=== PATIENT | female | born 1955 | race Caucasian/White ===

== ENCOUNTER 2019-03-05 02:09 | Inpatient (IN) ==
[2019-03-05] MEDS ORDERED: ZOFRAN IV ONE (02:31)
[2019-03-05] MEDS ORDERED: TORADOL IV ONE (02:31)
[2019-03-05] MEDS ORDERED: PEPCID IV ONE (02:31)
[2019-03-05] MEDS ORDERED: SODIUM CHLORIDE 0.9% INJ ONE (02:31)
[2019-03-05] MEDS ORDERED: MORPHINE IV ONE (03:42)
--- NOTE | 2019-03-05 03:42 | PROVIDER DOCUMENTATION ---
HPI-Abdominal Pain/GI Problem - General Chief Complaint: Abdominal Pain Stated Complaint: abd pain Time Seen by Provider: 03/05/19 02:22 Source: patient Allergies/Adverse Reactions: Patient Allergies Allergy/AdvReac Type Severity Reaction Status Date / Time Penicillins Allergy Unknown Verified 03/05/19 03:15 Home Medications: Home Medication List Medication Instructions Recorded Confirmed Last Taken Type Amlodipine [Norvasc] 10 mg PO DAILY 08/26/15 03/05/19 09/21/15 History Metoprolol Succinate E.r. [Toprol 50 mg PO DAILY 08/26/15 03/05/19 09/21/15 Hi story Xl] Tiotropium [place] [Spiriva 2 puff IH DAILY 08/26/15 03/05/19 09/21/15 History Respimat] Albuterol 2.5MG/Ipratrop 0.5MG 3 ml INH Q4-6H PRN PRN #100 neb 09/01/15 03/05/19 Unknown Rx [Duoneb] Ibuprofen [Motrin] 800 mg PO Q8H PRN PRN #20 tablet 09/21/15 03/05/19 Unknown Rx Roflumilast [Daliresp] 500 microgm PO DAILY 09/21/15 03/05/19 09/21/15 History Calcitonin,[place],Synthetic 1 spray INH DAILY 03/05/19 03/05/19 Unknown History [Calcitonin-[place]] Hydrocodone/Acetaminophen [[place] 1 tab PO TID PRN 03/05/19 03/05/19 Unknown History 7.5-325 Tablet] Meloxicam [Mobic] 1 tab PO DAILY 03/05/19 03/05/19 Unknown History Methocarbamol 1 tab PO TID 03/05/19 03/05/19 Unknown History Naloxegol Oxalate [Movantik] 1 tab PO DAILY 03/05/19 03/05/19 Unknown History Oxycodone HCl/Acetaminophen 1 tab PO TID PRN 03/05/19 03/05/19 Unknown History [Oxycodone-Acetaminophen 10-325] Pregabalin [Lyrica] 1 cap PO TID 03/05/19 03/05/19 Unknown History - History of Present Illness-ABD Nature of Presenting Problems: Presents to the with complaints of RUQ abdominal pain. She states that it started last night around 9pm after she ate dinner. She states that she had ribs, baked beans and steak fries. She states that she woke up acutely at 0130 and was drenched in sweat and the pain got worse. SHe endorses some nausea at this time but denies any vomiting. SHe denies any chest pain or SOB. She did not try anything at home. She denies any fevers, diarrhea or constipation. It is worse in her RUQ but feels like it radiates all over her abdomen. She denies any dysuria or heamturia. She states this has never happened to her. SHe denies any chest pain or cardiac history. Abdominal Pain Onset Location: reports: RUQ, generalized abdomen Review of Systems - Adult - REVIEW OF SYSTEMS - ADULT Constitutional: denies: chills, fever Eyes: reports: no symptoms reported Ears, Nose, Mouth & Throat: reports: no symptoms reported Cardiovascular: reports: no symptoms reported Respiratory: reports: no symptoms reported Gastrointestinal: reports: abdominal pain, nausea. denies: constipation, diarrhea, rectal bleeding, vomiting Genitourinary: denies: dysuria, hematuria Musculoskeletal: reports: no symptoms reported Integumentary: reports: no symptoms reported Neurological: reports: no symptoms reported Psychiatric: reports: no symptoms reported Endocrine: reports: no symptoms reported Hematologic/Lymphatic: reports: no symptoms reported Allergic/Immunologic: reports: no symptoms reported All Other Systems: Reviewed and Negative Past History - Adult - PAST MEDICAL HISTORY-ADULT Review of Records: reports: Old Records Reviewed, Nursing Assessment Review, Medications Reviewed, Social history reviewed & non-contributory. Major Childhood Illnesses: reports: denies history Cardiovascular: reports: HTN Respiratory: reports: COPD Gastrointestinal: reports: denies history Obstetrical/Gynecological: reports: denies history Genitourinary: reports: denies history Musculoskeletal: reports: orthopedic injury Neurological: reports: denies history Endocrine/Immune: reports: denies history Other Conditions: reports: cataract/glaucoma - PRIOR SURGERIES/PROCEDURES Surgical/Procedure History: reports: tonsillectomy, orthopedic (extremity), other (cataract) - IMMUNIZATION STATUS Childhood Immunizations: See Nurse Assessment Flu Vaccine: See Nurse Assessment - FAMILY HISTORY Family History: reviewed, not pertinent Physical Exam-General - PHYSICAL EXAM-ADULT Initial Vital Signs Reviewed: Yes - CONSTITUTIONAL General Appearance: appears well, alert, mild distress (uncomfortable appearing) - EYES Eyes: PERRL/EOMI - HEAD, EARS, NOSE, MOUTH & THROAT HENMT: normocephalic/atraumatic - NECK Neck: non-tender, full range of motion, supple - RESPIRATORY Respiratory: chest non-tender, lungs clear, normal breath sounds - CARDIOVASCULAR Cardiovascular: normal peripheral pulses, regular rate, rhythm - GASTROINTESTINAL (ABDOMEN) Abdominal Exam: normal bowel sounds, guarding, rigid, tenderness (worse in RUQ but is present diffusely) - MUSCULOSKELETAL Back Exam: normal inspection Extremity: normal range of motion, non-tender, normal gait - SKIN Integumentary: normal color, warm/dry - NEUROLOGIC Neurologic: grossly normal - PSYCHIATRIC Psych/Mental Status: normal mood/affect, oriented x 3 Progress - PLAN OF CARE/RESULTS Progress/Plan/Lab Results: Vital Signs - 8 hr 03/05/19 02:15 03/05/19 03:06 Temperature 97.1 F L 97.0 F L Pulse Rate 75 99 H Respiratory Rate 24 20 Blood Pressure 142/74 142/69 O2 Sat by Pulse Oximetry 100 98 Orders Category Date Time Status Saline Loc NOW Care 03/05/19 02:[address] ABD/PELVIS W/IV CONT ONLY [CT] Stat Exams 03/05/19 02:33 Ordered AMYLASE [CHEM] Stat Lab 03/05/19 02:56 Ordered CBC WITH ELECTRONIC DIFF [HEME] Stat Lab 03/05/19 02:56 Ordered COMPREHENSIVE METABOLIC PANEL [CHEM] Stat Lab 03/05/19 02:56 Ordered LIPASE [CHEM] Stat Lab 03/05/19 02:56 Ordered TROPONIN T Stat Lab 03/05/19 03:09 Ordered URINALYSIS [URINALYSIS] Stat Lab 03/05/19 02:31 Uncollected URINE DRUG SCREEN Stat Lab 03/05/19 02:31 Uncollected Famotidine [Pepcid] Med 03/05/19 02:31 Discontinued 20 mg IV NOW ONE Ketorolac [Toradol] Med 03/05/19 02:31 Discontinued 30 mg IV NOW ONE Ondansetron [Zofran] Med 03/05/19 02:31 Discontinued 4 mg IV NOW ONE Sodium Chloride 0.9% Med 03/05/19 02:31 Discontinued 5 - 10 ml INJ NOW ONE EKG [EKG] Stat Ther 03/05/19 02:44 Ordered Result Diagrams: 03/05/19 03:00 03/05/19 03:00 - CT/MRI 1 CT Study: Abdomen Impression: Abnormal (Bowel perforation) - CONSULTS/PCP/HOSPITALIST Notification #1 *Consult/PCP/Hospitalist*: Dr Horvath Time Discussed: 05:35 Reason/Comments: Admit to hospitalist Consult Disposition: Will see in ED #2 Consult: Dr Wright Time Discussed: 05:45 Consult Disposition: Admit Departure - Departure Date of Disposition Decision: 03/05/19 Time of Disposition Decision: 05:53 DIAGNOSIS: Bowel perforation Disposition: ADMITTED INPATIENT 09 Certified Medical Emergency: Emergent Condition: Stable Additional Freetext Instructions: ED Follow Up Instructions: You have been treated by a care provider in the Emergency Department. These instructions are being provided to you so you can have an understanding of how to care for yourself upon discharge. Upon discharge from the Emergency Department, you are responsible for making arrangements for follow-up care by a physician of your choice. Take all prescribed medications as directed. Return to the Emergency Department immediately for any new or worsening symptoms. You may call the Physician Referral phone number at [phone] to obtain a list of Physicians who are taking new patients. Referrals and Follow-Ups: Malorie Martinez MD [Primary Care Provider] - Discharge Education: Steps to Quit Smoking, [id number] - Critical Care Note This patient required my direct & personal management of CC.: No Attestation - Physician/ MADDY Attestation Patient care was provided by Advanced Practice Provider:: No The physician spent face to face time with patient:: Yes Advanced Practice Provider documentation review:: Supervising physician onsite and consulted in the evaluation and care of this patient. The physician did have a face to face encounter with the patient.
[2019-03-05 04:26] LABS: AGAP 14; ALB/GLOB RATIO 2.1; ALKALINE PHOSPHATASE 41 U/L (32-104); AMYLASE 68 U/L (20-200); BUN 26 mg/dL (8-22); CALCIUM 8.7 mg/dL (8.8-10.2); CHLORIDE 92 mmol/L (98-107); COSMO 271; CREATININE 0.8 mg/dL (0.5-0.9); ESTIMATED GFR > 60; GLUCOSE 125 mg/dL (70-104); GOT 16 U/L (10-30); GPT 13 U/L (10-36); LIPASE 41 U/L (13-60); POTASSIUM 4.2 mmol/L (3.5-5.1); SODIUM 132 mmol/L (136-145); TCO2 26 mmol/L (25-35); TOTAL BILIRUBIN 0.52 mg/dL (0.20-1.00); TOTAL PROTEIN 5.9 g/dL (6.3-8.3)
[2019-03-05 04:27] LABS: BASO# 0.02 X1000 (0.0-0.2); BASO% 0.1 % (0.0-0.8); HEMOGLOBIN 11.9 g/dL (12.0-16.0); IMM GRAN# 0.09 X1000 (0.0-0.04); IMM GRAN% 0.3 % (0.0-0.5); LYMPH# 1.47 X1000 (1.2-3.4); LYMPH% 5.4 % (20.5-51.1); MCH 33.3 PG (27-31); MCHC 36.1 g/dL (33-37); MCV 92.4 FL (81-99); MONO% 6.6 % (1.7-9.3); MPV 9.2 FL (7.4-10.4); NEUT# 23.82 X1000 (1.4-6.5); NEUT% 87.6 % (42.2-75.2); PLT 238 X1000 (130-400); RBC 3.57 XMIL (4.2-5.4); RDW 15.6 % (11.5-14.5)
[2019-03-05 05:44] LABS: URINE SOURCE CATH
[2019-03-05] MEDS ORDERED: FLAGYL 500 MG/NS 500 MG/100 ML IVPB IV ONE (05:46)
[2019-03-05] MEDS ORDERED: LEVAQUIN 750 MG/D5W 750 MG/150 ML IVPB IV ONE (05:46)
[2019-03-05 05:49] LABS: BILIRUBIN URINE NEGATIVE (NEGATIVE); BLOOD URINE NEGATIVE (NEGATIVE); COLOR YELLOW; GLUCOSE URINE NEGATIVE (NEGATIVE); KETONE URINE TRACE mg/dL (NEGATIVE); LEUKOCYTES URINE NEGATIVE (NEGATIVE); NITRITE URINE NEGATIVE (NEGATIVE); PROTEIN URINE NEGATIVE (NEGATIVE); SP GRAVITY URINE 1.009; TURBIDITY URINE CLEAR (CLEAR); UROBILINOGEN URINE NORMAL (NORMAL)
[2019-03-05 05:50] LABS: UR EPITHELIAL CELLS <10 /HPF (<10); URINE BACTERIA NEGATIVE /HPF; URINE RBC <10 /HPF (<10); URINE WBC <10 /HPF (<10)
[2019-03-05 06:05] LABS: UR AMPHETAMINES QUAL NONE DETECTED (NONE DETECT); UR BARBITUATES QUAL NONE DETECTED (NONE DETECT); UR BENZODIAZEPIN QUAL NONE DETECTED (NONE DETECT); UR CANNABINOIDS QUAL NONE DETECTED (NONE DETECT); UR COCAINE QUAL NONE DETECTED (NONE DETECT); UR METHADONE QUAL NONE DETECTED (NONE DETECT); UR OPIATES QUAL PRESUMPTIVE POSITIVE (NONE DETECT); UR OXYCODONE QUAL PRESUMPTIVE POSITIVE (NONE DETECT); UR PCP QUAL NONE DETECTED (NONE DETECT)
[2019-03-05] MEDS ORDERED: DIPRIVAN 1% ONE (06:41)
[2019-03-05] MEDS ORDERED: QUELICIN (DOSE) ONE (06:41)
[2019-03-05] MEDS ORDERED: XYLOCAINE-MPF 2% ONE (06:43)
--- NOTE | 2019-03-05 06:59 | HISTORY AND PHYSICAL ---
PRIMARY CARE PHYSICIAN: Dr. Martinez. CHIEF COMPLAINT: Abdominal pain. HISTORY OF PRESENTING ILLNESS: A 63-year-old female with a history of hypertension, COPD on home oxygen, chronic low back pain, who presented to the emergency department with a 1-day history of having sudden abdominal pain. She described it as sharp. She states that she woke up with it. She was nauseated and was having chills. She was evaluated in the emergency department. She had imaging done, which did show a bowel perforation. Her case was discussed with General Surgery, who recommended admission for further management. At the time of my examination, the patient denied any headache, chest pain, shortness of breath, hemoptysis, or weight changes, but complained of abdominal pain. PAST MEDICAL HISTORY: Includes hypertension, COPD, chronic low back pain. PAST SURGICAL HISTORY: Lumbar fusion, right shoulder surgery, cataract surgery. ALLERGIES: Penicillin. CURRENT MEDICATIONS: Include DuoNebs every 6 hours, Norvasc 10 mg p.o. daily, [place] 7.5 mg p.o. t.i.d., meloxicam 1 p.o. daily, methocarbamol 750 mg p.o. t.i.d., metoprolol 50 mg p.o. daily, Movantik 25 mg p.o. daily, Percocet 10/325 one p.o. t.i.d., Lyrica 150 mg p.o. t.i.d. SOCIAL HISTORY: A 40+ pack-year history of smoking. Admits to social alcohol use. Denies any illicit drug use. FAMILY HISTORY: Positive for coronary disease in father. REVIEW OF SYSTEMS: A 14-point review of systems is as per HPI, other systems negative. PHYSICAL EXAMINATION: GENERAL: Cooperative, friendly female. She is resting more comfortably now. VITAL SIGNS: Temperature 98 degrees, pulse 85, respirations 26, blood pressure 178/76. HEENT: Atraumatic, normocephalic. Extraocular movements intact. PERRLA. NECK: Supple. CHEST: Clear to auscultation. CARDIOVASCULAR: Regular rate and rhythm. ABDOMEN: Soft. Diffuse tenderness. EXTREMITIES: No edema. NEUROLOGIC: She is awake, alert, oriented x3. GENITOURINARY: No bladder distention. SKIN: Warm. LABORATORY DATA: WBCs 27.20, hemoglobin 11.9, hematocrit 33.0, platelets 238,000. Sodium 132, potassium 4.2, chloride 92, CO2 is 26, BUN is 26, creatinine 0.8, glucose 125. ASSESSMENT: This is a 63-year-old female with a history of hypertension, chronic obstructive pulmonary disease, and chronic low back pain, who presented to the emergency department with a 1- day history of having abdominal pain. Apparently, she woke up with it, was nauseated, and was having chills. She was brought to the emergency department. She had imaging done, which did show a bowel perforation. The case was discussed with General Surgery, and she will require admission for further management. 1. Bowel perforation. 2. Chronic obstructive pulmonary disease. 3. Hypertension. 4. Chronic low back pain. PLAN: 1. Will admit the patient to ICU. 2. Will keep the patient n.p.o. 3. Continue supportive treatment with pain control. 4. Will start the patient on IV antibiotics. 5. General Surgery was already consulted. 6. Will continue with DuoNebs. 7. Monitor blood pressure closely. 8. Will give the patient adequate pain control. 9. Will put the patient on DVT prophylaxis with SCD. 10. Will continue to follow and reassess and make further recommendations based on the patient's clinical course. cc: Alfonso Wright MD
[2019-03-05] MEDS ORDERED: NEO-SYNEPHRINE ONE (07:02)
[2019-03-05] MEDS ORDERED: DECADRON ONE (07:22)
[2019-03-05] MEDS ORDERED: ROBINUL ONE (07:27)
[2019-03-05] MEDS ORDERED: NEOSTIGMINE ONE (07:27)
[2019-03-05] MEDS ORDERED: OFIRMEV 1000 MG/ISOTONIC SOLN 1,000 MG/100 ML BOTTLE ONE (07:46)
[2019-03-05] MEDS ORDERED: FENTANYL ONE (07:46)
[2019-03-05 07:54] LABS: URINE SOURCE CATH
[2019-03-05 07:58] LABS: BILIRUBIN URINE NEGATIVE (NEGATIVE); BLOOD URINE NEGATIVE (NEGATIVE); COLOR YELLOW; GLUCOSE URINE NEGATIVE (NEGATIVE); KETONE URINE TRACE mg/dL (NEGATIVE); LEUKOCYTES URINE NEGATIVE (NEGATIVE); NITRITE URINE NEGATIVE (NEGATIVE); PH URINE 5.5; PROTEIN URINE NEGATIVE (NEGATIVE); TURBIDITY URINE CLEAR (CLEAR); UROBILINOGEN URINE NORMAL (NORMAL)
[2019-03-05 08:00] LABS: UR EPITHELIAL CELLS <10 /HPF (<10); URINE BACTERIA NEGATIVE /HPF; URINE RBC <10 /HPF (<10); URINE WBC <10 /HPF (<10)
[2019-03-05] MEDS ORDERED: DUONEB (A & A) INH PRN (08:19)
[2019-03-05] MEDS ORDERED: MORPHINE IV PRN (08:19)
--- NOTE | 2019-03-05 08:30 | OPERATIVE NOTE ---
PROCEDURE DATE: 03/05/2019 PREOPERATIVE DIAGNOSIS: Perforated bowel. POSTOPERATIVE DIAGNOSIS: Perforated duodenal ulcer. PROCEDURE PERFORMED: Exploratory laparotomy with open Rodrigue patch repair. SURGEON: Giorgio Horvath MD. HRIS SPECIALIST: None. ANESTHESIA: General endotracheal. FINDINGS: Small perforated ulcer on the first and second portions of the duodenum. COMPLICATIONS: None at the time of this dictation. ESTIMATED BLOOD LOSS: 20 mL. SPECIMEN REMOVED: None. DRAINS: A 19-[place]. BRIEF HISTORY: A 63-year-old female presenting with sudden onset of abdominal pain. She had a CT scan that showed free air. It was felt she would benefit from exploratory laparotomy. The risks, benefits, and alternatives were discussed. All questions answered. DESCRIPTION OF PROCEDURE: After informed consent was obtained, the patient was brought to the operative theatre, transferred to the operating table, and placed in a supine position. General endotracheal anesthesia was then performed without complication. A formal time-out was then performed, confirming patient, date, procedure. All in agreement. At that time, attention was given to the abdomen. A standard midline incision was made to enter the abdomen. Upon entering, we found bilious fluid and exudative process. We irrigated out the abdomen copiously. We examined the abdomen thoroughly. We found a perforation in the duodenum on the anterior surface of the first and second portions of the duodenum. We mobilized a piece of omentum. She had a very small amount of omentum given her small weight but we were able to mobilize it, have a vascular pedicle, brought it up to the right upper quadrant. Again, we preserved the pedicle and the vascular supply to the omentum. We secured it in place with a standard Rodrigue patch with silk sutures, covering it completely. We irrigated out the abdomen copiously. We placed a drain from the right upper quadrant and tunneled it to where the perforation was. We then closed the fascia with a running loop PDS and the skin with loren. We secured the drain in place. The patient tolerated the procedure well. She will be transferred back to the ICU. cc: Giorgio Horvath MD
--- NOTE | 2019-03-05 08:41 | Diag Imaging Result Doc PS360 ---
EXAM: CT ABD/PELVIS W/IV CONT ONLY - 03/05/2019 HISTORY: colitis TECHNIQUE: CT abdomen/pelvis with intravenous contrast. No oral contrast administered per request of the referring provider. COMPARISON: None. FINDINGS: The visualized lung bases appear clear. There is a moderate amount of scattered free intraperitoneal air. This suggests bowel perforation. The specific site of perforation is difficult to identify. The terminal ileum has somewhat mottled appearance, but this can be seen with fecal-like material in the lumen due to stasis. There is no discrete abscess identified. There is a small to medium amount of free fluid. There is some mild small bowel distention, but there is no discrete small bowel obstruction. There is a possible 9 mm enhancing polyp in small bowel at the upper pelvis (image 88 of series 3). The liver is mildly prominent in size but demonstrates homogeneous has been. The spleen is borderline small. The adrenal glands and pancreas are unremarkable. There are no calcified gallstones identified. The bilateral kidneys enhance homogeneously except for apparent tiny left renal cyst. There is no hydronephrosis. There are no substantial enlarged lymph nodes identified. There are atherosclerotic calcifications noted. There are lumbar spine postsurgical changes noted. IMPRESSION: Free intraperitoneal air. This suggests bowel perforation. The specific site of perforation is not discretely identified. Some mild small bowel distention, but no discrete small bowel obstruction. Possible 9 mm enhancing polyp in small bowel at upper pelvis. The on-call radiologist provided preliminary results at 5:22 AM on 03/05/2019. This exam was performed using automated exposure control, adjustment of mA or kV according to patient size, and/or use of iterative reconstruction technique. Electronically signed by Giuliano Falk 03/05/2019 8:39 AM
[2019-03-05] MEDS: NS 1,000 ML IV SCH ×2 (08:49→18:01)
[2019-03-05] MEDS ORDERED: DIFLUCAN 400 MG/NS 400 MG/200 ML IVPB IV SCH ×2 (09:00→09:45)
[2019-03-05] MEDS ORDERED: ZOFRAN IV PRN (09:30)
[2019-03-05] MEDS ORDERED: NARCAN IV PRN (09:30)
[2019-03-05] MEDS: PROTONIX 80 MG in NS 80 ML IV SCH ×2 (09:30→18:58)
[2019-03-05] MEDS ORDERED: SODIUM CHLORIDE 0.9% INJ PRN (09:30)
[2019-03-05] MEDS ORDERED: PHENERGAN IV PRN (09:30)
[2019-03-05] MEDS: LR 1,000 ML IV SCH (09:43)
[2019-03-05] MEDS: DILAUDID PCA VIAL IV PRN (09:50)
[2019-03-05] MEDS ORDERED: SPIRIVA INH SCH (10:45)
--- NOTE | 2019-03-05 10:57 | PROGRESS NOTE ---
DATE: 03/05/2019 INTERVAL HISTORY: Ms. Hauser was admitted for perforated viscus and underwent emergent laparotomy. She was found to have a perforated duodenal ulcer which was repaired with omental patch. I am seeing her in ICU. She is currently complaining of some mild abdominal pain without any other distress. She denies any nausea or vomiting. Family is at bedside. VITAL SIGNS: Temperature 98.3 degrees, pulse 88, respiratory 22, blood pressure 140/76, saturating 100% on 3 L nasal cannula. PHYSICAL EXAMINATION: General: Does not appear in any acute distress. HEENT: Oral cavity is dry. Lungs: Air entry bilaterally equal. Mild end-expiratory wheezes. No rhonchi or crackles. Cardiovascular: S1, S2 normal. No murmur or gallop. Abdomen: Soft. There is a midline dressing of recent laparotomy. She also has a drain coming out which has serosanguineous discharge with blood tinge. No bowel sounds. She has a nasogastric tube under suction. Extremities: No lower extremity edema. Genitourinary: She also has a urine catheter. LABORATORY DATA: Suggestive of leukocytosis, normocytic anemia, normal platelet count, hyponatremia, hypochloremia, normal kidney function. No new microbiological data. No new imaging. At home, she is listed to be taking ibuprofen, meloxicam. On top of that, she was also taking aspirin and prednisone. ASSESSMENT AND PLAN: 1. Perforated duodenal ulcer, likely due to use of ibuprofen, meloxicam, aspirin for pain, prednisone for chronic obstructive pulmonary disease, as well as active smoking, status post laparotomy, repair of perforated ulcer with omental patch on 03/05/2019. Continue nasogastric tube, wound and drain management as per surgery. Continue intravenous Protonix drip, NPO status, intravenous metronidazole and levofloxacin and intravenous fluids. Intravenous fluconazole has been started by surgical team as well. 2. Others: Essential hypertension. I would restart some of her home medications as tolerated. Chronic obstructive pulmonary disease, continue albuterol ipratropium nebulization every 4 hours and oxygen for chronic hypoxic respiratory failure. For chronic back pain and osteoarthritis pain, the patient has been on WAREHOUSE COORDINATOR pump. DISPOSITION: More than 30 minutes of critical care time was spent in taking care of this patient. The patient remains in ICU. Plan of care discussed with the patient and family members at bedside. All of their questions have been answered. cc: Mart Major MD
[2019-03-05] MEDS: SPIRIVA INH SCH (11:00)
[2019-03-05] MEDS: DUONEB (A & A) INH SCH ×3 (11:39→22:55)
[2019-03-05] MEDS ORDERED: FLAGYL 500 MG/NS 500 MG/100 ML IVPB IV SCH (12:00)
[2019-03-05] MEDS: FLAGYL 500 MG/NS 500 MG/100 ML IVPB IV SCH ×2 (14:44→21:30)
[2019-03-05] MEDS: NICODERM PATCH TD SCH (16:43)
[2019-03-05] MEDS: HEPARIN SUBQ SCH (20:21)
[2019-03-06] MEDS: DUONEB (A & A) INH SCH ×4 (03:18→22:45)
[2019-03-06] MEDS: NS 1,000 ML IV SCH ×3 (04:34→21:22)
[2019-03-06] MEDS: PROTONIX 80 MG in NS 80 ML IV SCH (04:35)
[2019-03-06] MEDS: LEVAQUIN 750 MG/D5W 750 MG/150 ML IVPB IV SCH (04:35)
[2019-03-06] MEDS: HEPARIN SUBQ SCH (06:12)
[2019-03-06] MEDS: FLAGYL 500 MG/NS 500 MG/100 ML IVPB IV SCH ×3 (06:13→21:43)
[2019-03-06 06:38] LABS: AGAP 8; BUN 18 mg/dL (8-22); CALCIUM 7.5 mg/dL (8.8-10.2); CHLORIDE 102 mmol/L (98-107); COSMO 268; CREATININE 0.7 mg/dL (0.5-0.9); ESTIMATED GFR > 60; GLUCOSE 156 mg/dL (70-104); MAGNESIUM 1.6 mg/dL (1.5-2.7); POTASSIUM 4.9 mmol/L (3.5-5.1); SODIUM 131 mmol/L (136-145); TCO2 21 mmol/L (25-35)
[2019-03-06 06:40] LABS: EOS# 0.04 X1000 (0.0-0.7); EOS% 0.2 % (0.0-10.0); HEMATOCRIT 18.7 % (37.0-47.0); HEMOGLOBIN 6.2 g/dL (12.0-16.0); IMM GRAN# 0.06 X1000 (0.0-0.04); IMM GRAN% 0.3 % (0.0-0.5); LYMPH# 0.88 X1000 (1.2-3.4); LYMPH% 5.1 % (20.5-51.1); MCHC 33.2 g/dL (33-37); MCV 96.4 FL (81-99); MONO# 1.37 X1000 (0.11-0.59); MONO% 7.9 % (1.7-9.3); MPV 8.8 FL (7.4-10.4); NEUT# 14.91 X1000 (1.4-6.5); NEUT% 86.5 % (42.2-75.2); PLT 151 X1000 (130-400); RBC 1.94 XMIL (4.2-5.4); RDW 16.4 % (11.5-14.5); WBC 17.26 X1000 (4.8-10.8)
[2019-03-06 06:48] LABS: INR 1.06; PROTIME 14.7 Seconds (11.0-16.0)
--- NOTE | 2019-03-06 07:39 | EKG Report ---
Test Performed on : 03/05/2019 03:16:23 AM Test Reason : epigastric pain Blood Pressure : / mmHG Vent. Rate : 070 BPM Atrial Rate : 070 BPM P-R Int : 134 ms QRS Dur : 076 ms QT Int : 422 ms P-R-T Axes : 073 081 074 degrees QTc Int : 455 ms Normal sinus rhythm. ST & T wave abnormality, consider anterior ischemia Abnormal ECG When compared with ECG of 01-SEP-2015 11:30, ST elevation now present in Inferior leads Unconfirmed Result
--- NOTE | 2019-03-06 07:49 | GENERAL SURGERY PROGRESS NOTE ---
DATE: 03/06/2019 SUBJECTIVE: Patient seems to be doing okay. She has been hemodynamically stable. Her pain seems to be relatively well controlled. Stepan-Archer drains in place and has not had any bile come out of it. Nasogastric tube has some bilious output. OBJECTIVE: Vital Signs: Patient is currently afebrile. She does have a little tachycardia in the 114s. Blood pressure is stable. General: No acute distress. Cardiovascular: Some mild tachycardia. Lungs: Grossly clear, saturating 98. Abdomen: Soft, appropriately tender. Stepan-Archer drain in place with serosanguineous output, total recorded output 220. ASSESSMENT/PLAN: A 63-year-old, currently postoperative day 1 from exploratory laparotomy and open Rodrigue patch repair. Postoperative state. At this time, continue current treatment. Continue NG tube. Continue decompression. We will need to get upper GI series probably on postoperative day #5. In the meantime we will get a PICC line placed and start her on TPN. cc: Giorgio Horvath MD
[2019-03-06] MEDS ORDERED: NS 250 ML ONE (07:58)
[2019-03-06] MEDS: SPIRIVA INH SCH (08:12)
[2019-03-06 08:28] LABS: HEMATOCRIT 17.9 % (37.0-47.0)
[2019-03-06] MEDS: MAGNESIUM SULFATE 2 GM/S.W.I. 2 GM/50 ML IVPB IV SCH ×2 (09:14→11:23)
[2019-03-06] MEDS: NICODERM PATCH TD SCH (09:15)
[2019-03-06] MEDS: DIFLUCAN 400 MG/NS 400 MG/200 ML IVPB IV SCH (09:16)
[2019-03-06] MEDS: LR 1,000 ML IV SCH (09:30)
--- NOTE | 2019-03-06 10:03 | EKG Report ---
Test Performed on : 03/06/2019 05:02:04 AM Test Reason : ICU. NO EKG ORDER FOR MUSE Blood Pressure : / mmHG Vent. Rate : 107 BPM Atrial Rate : 107 BPM P-R Int : 126 ms QRS Dur : 092 ms QT Int : 330 ms P-R-T Axes : 082 077 014 degrees QTc Int : 440 ms Sinus tachycardia. Otherwise normal ECG When compared with ECG of 05-MAR-2019 03:16, (Unconfirmed) Vent. rate has increased BY [address] no longer elevated in Inferior leads ST no longer depressed in Anterior leads Nonspecific T wave abnormality now evident in Inferior leads T wave inversion no longer evident in Anterior leads Confirmed by Joanne HERNANDEZ, Alfredo Campbell ([id number]) on 03/07/2019 7:28:14 PM
--- NOTE | 2019-03-06 10:15 | PROGRESS NOTE ---
DATE: 03/06/2019 INTERVAL HISTORY: Patient had a coughing bout overnight, and after that her heart rate had increased to 140s. She was in distress at that time. However, in the morning time, the heart rate had come down to 110. She was normotensive. In the morning time, she did have a drop in her hemoglobin and platelet as well. The repeat blood count and hemoglobin suggested further drop, so she was ordered 2 units of blood transfusion. Her magnesium was low which is being repleted. Her normal saline rate is being decreased. SUBJECTIVE: She is feeling fine. Denies any new complaints. She states that her nicotine patch is helping. OBJECTIVE: Vitals: She has been afebrile. Temperature of 98.1 degrees, pulse 120, respiratory rate 20, blood pressure 108/65 and saturating 97% on 2 L nasal cannula. General: Does not appear in any acute distress. HEENT: Oral cavity is dry. Lungs: Air entry bilaterally equal. No rhonchi or crackles. No wheezes appreciated today. Cardiovascular: S1, S2 normal. Tachycardic. No murmur, rub, or gallop. Abdomen: Soft. Midline dressing of recent laparotomy. She has a drain coming out with serosanguineous discharge. No bowel sounds. She has a nasogastric tube. Extremities: No lower extremity edema. She also has urine catheter. LABORATORY: Labs suggestive of improving WBC count to 17,000. Hemoglobin of 6, and platelet of 151,000. Coagulation is normal. Chemistry suggestive of stable hyponatremia and hypochloremia. Normal kidney function. IMAGING: No new imaging today. ASSESSMENT AND PLAN: 1. Perforated duodenal ulcer likely use of NSAIDs, prednisone for COPD and chronic pain, and active smoking status post laparotomy, repair of perforated ulcer with omental patch on 03/05. Continue NG tube and laparotomy wound and drain management as per Surgery; pantoprazole intravenous drip; NPO status; intravenous metronidazole, levofloxacin and fluconazole as per Surgery recommendation. The plan is to get a PICC line and total parenteral nutrition. I will decrease the normal saline rate. 2. Acute blood loss anemia, likely because of her perforated viscus and blood loss sustained during surgery. Plan is to give 2 units of blood transfusion and follow up with repeat blood count after 1 hour. Surgery team will be notified of sudden drop in blood count. I will continue to monitor patient in ICU. 3. Others: Essential hypertension is in acceptable range. 4. For COPD, I would continue albuterol ipratropium nebulization every 4 hours and; oxygen through nasal cannula for chronic hypoxic respiratory failure; chronic back and osteoarthritic pain. 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 5. Disposition. I will continue to monitor patient in ICU since her blood count suddenly dropped and she is tachycardic because of that. TIME SPENT: More than 30 minutes of critical care time was spent in taking care of this patient. Plan of care discussed with the patient and nursing team. All of their questions have been answered. cc: Mart Major MD
[2019-03-06] MEDS: SODIUM CHLORIDE 0.9% INJ SCH ×2 (10:39→21:43)
[2019-03-06] MEDS: PROTONIX IV SCH ×2 (10:39→21:43)
[2019-03-06] MEDS ORDERED: [UNRECOGNIZED DRUG - OTHER] IV SCH ×7 (13:00)
[2019-03-06] MEDS ORDERED: TPN ELECTROLYTES IV SCH ×7 (13:00)
[2019-03-06] MEDS ORDERED: MAGNESIUM SULFATE IV SCH ×7 (13:00)
[2019-03-06] MEDS ORDERED: D10W 1,000 ML IV PRN (13:00)
[2019-03-06] MEDS ORDERED: SODIUM PHOSPHATE IV SCH ×7 (13:00)
[2019-03-06] MEDS: LIPOSYN 20% 250 ML IV SCH (13:59)
[2019-03-06 14:31] LABS: HEMATOCRIT 21.4 % (37.0-47.0); HEMOGLOBIN 7.1 g/dL (12.0-16.0)
[2019-03-07] MEDS: NS 1,000 ML IV SCH (00:27)
[2019-03-07] MEDS ORDERED: DUONEB (A & A) INH PRN (01:03)
[2019-03-07] MEDS: BENADRYL IV PRN ×2 (02:27→21:00)
[2019-03-07] MEDS: DUONEB (A & A) INH SCH ×4 (03:13→22:00)
[2019-03-07 03:48] LABS: HEMATOCRIT 28.6 % (37.0-47.0); HEMOGLOBIN 9.9 g/dL (12.0-16.0)
[2019-03-07] MEDS: FLAGYL 500 MG/NS 500 MG/100 ML IVPB IV SCH ×3 (05:21→21:01)
[2019-03-07] MEDS: LEVAQUIN 750 MG/D5W 750 MG/150 ML IVPB IV SCH (05:21)
[2019-03-07 05:49] LABS: BASO# 0.01 X1000 (0.0-0.2); BASO% 0.1 % (0.0-0.8); EOS# 0.04 X1000 (0.0-0.7); EOS% 0.2 % (0.0-10.0); HEMATOCRIT 28.9 % (37.0-47.0); HEMOGLOBIN 9.9 g/dL (12.0-16.0); IMM GRAN# 0.08 X1000 (0.0-0.04); IMM GRAN% 0.5 % (0.0-0.5); LYMPH# 1.28 X1000 (1.2-3.4); LYMPH% 7.2 % (20.5-51.1); MCH 31.2 PG (27-31); MCHC 34.3 g/dL (33-37); MCV 91.2 FL (81-99); MONO# 1.51 X1000 (0.11-0.59); MONO% 8.5 % (1.7-9.3); MPV 9.1 FL (7.4-10.4); NEUT# 14.83 X1000 (1.4-6.5); NEUT% 83.5 % (42.2-75.2); PLT 104 X1000 (130-400); RBC 3.17 XMIL (4.2-5.4); RDW 16.4 % (11.5-14.5); WBC 17.75 X1000 (4.8-10.8)
[2019-03-07 05:54] LABS: AGAP 6; BUN 25 mg/dL (8-22); CALCIUM 7.9 mg/dL (8.8-10.2); CHLORIDE 106 mmol/L (98-107); CHOLESTEROL 101 mg/dL (0-200); COSMO 283; CREATININE 0.6 mg/dL (0.5-0.9); ESTIMATED GFR > 60; GLUCOSE 120 mg/dL (70-104); GOT 20 U/L (10-30); MAGNESIUM 2.2 mg/dL (1.5-2.7); PHOSPHORUS 2.4 mg/dL (2.7-4.5); POTASSIUM 4.7 mmol/L (3.5-5.1); PREALBUMIN 12.3 mg/dL (20-40); SODIUM 139 mmol/L (136-145); TCO2 27 mmol/L (25-35); TRIGLYCERIDES 72 mg/dL (35-135)
--- NOTE | 2019-03-07 07:26 | Diag Imaging Result Doc PS360 ---
EXAM: CHEST-PORTABLE INDICATION: SOB,Wheezing and rhonchi bilaterally TECHNIQUE: One view COMPARISON: 09/01/2015 FINDINGS: A right PICC line is in place with the tip projecting over the lower SVC in expected position. There is also an NG tube with the tip projecting below the diaphragm and assumed to be in the lumen of the stomach in expected position. The lungs are hyperinflated suggesting COPD. There is minimal interstitial thickening with vague Derek B lines at the lower lung zones bilaterally suggesting minimal edema. There is no discrete pleural fluid collection or pneumothorax. The cardiac silhouette is unremarkable. Central vasculature is borderline prominent. IMPRESSION: COPD changes and suggestion of very mild interstitial edema. Electronically signed by James Perez 03/07/2019 7:24 AM
[2019-03-07] MEDS: NICODERM PATCH TD SCH (08:20)
[2019-03-07] MEDS: DIFLUCAN 400 MG/NS 400 MG/200 ML IVPB IV SCH (08:20)
[2019-03-07] MEDS: SPIRIVA INH SCH (08:37)
[2019-03-07] MEDS: DILAUDID PCA VIAL IV PRN (08:50)
[2019-03-07] MEDS: SODIUM CHLORIDE 0.9% INJ SCH ×2 (09:01→21:00)
[2019-03-07] MEDS: PROTONIX IV SCH ×2 (09:01→21:00)
[2019-03-07] MEDS: LR 1,000 ML IV SCH ×2 (09:10→11:16)
[2019-03-07] MEDS: LIDODERM TOP SCH (09:43)
[2019-03-07] MEDS ORDERED: BLISTEX MEDICATED BERRY LIP BALM TOP PRN (10:14)
[2019-03-07] MEDS ORDERED: MAGNESIUM SULFATE IV SCH ×7 (13:00)
[2019-03-07] MEDS ORDERED: [UNRECOGNIZED DRUG - OTHER] IV SCH ×7 (13:00)
[2019-03-07] MEDS ORDERED: M V I IV SCH ×7 (13:00)
[2019-03-07] MEDS ORDERED: TPN ELECTROLYTES IV SCH ×7 (13:00)
[2019-03-07] MEDS: HEPARIN SUBQ SCH ×2 (14:44→21:00)
[2019-03-07] MEDS: LIPOSYN 20% 250 ML IV SCH (14:45)
[2019-03-07] MEDS: XYLOCAINE 2% VISCOUS MT PRN (20:58)
[2019-03-07 21:48] LABS: BASO# 0.01 X1000 (0.0-0.2); BASO% 0.1 % (0.0-0.8); EOS# 0.08 X1000 (0.0-0.7); EOS% 0.5 % (0.0-10.0); HEMATOCRIT 29.3 % (37.0-47.0); HEMOGLOBIN 10.1 g/dL (12.0-16.0); IMM GRAN# 0.05 X1000 (0.0-0.04); IMM GRAN% 0.3 % (0.0-0.5); LYMPH# 1.43 X1000 (1.2-3.4); LYMPH% 8.7 % (20.5-51.1); MCH 31.6 PG (27-31); MCHC 34.5 g/dL (33-37); MCV 91.6 FL (81-99); MONO# 1.29 X1000 (0.11-0.59); MONO% 7.9 % (1.7-9.3); MPV 9.5 FL (7.4-10.4); NEUT# 13.52 X1000 (1.4-6.5); NEUT% 82.5 % (42.2-75.2); PLT 123 X1000 (130-400); RDW 16.9 % (11.5-14.5); WBC 16.38 X1000 (4.8-10.8)
[2019-03-07 22:14] LABS: AGAP 9; BUN 19 mg/dL (8-22); CALCIUM 8.2 mg/dL (8.8-10.2); CHLORIDE 103 mmol/L (98-107); COSMO 277; CREATININE 0.5 mg/dL (0.5-0.9); ESTIMATED GFR > 60; GLUCOSE 121 mg/dL (70-104); INR 0.91; POTASSIUM 3.7 mmol/L (3.5-5.1); PROTIME 12.9 Seconds (11.0-16.0); SODIUM 137 mmol/L (136-145); TCO2 25 mmol/L (25-35)
[2019-03-07 22:23] LABS: CK INDEX 1.9 (0.0-2.5); CK-MB 4.3 ng/mL (0.0-5.0)
[2019-03-08] MEDS: DUONEB (A & A) INH SCH ×3 (03:35→16:11)
[2019-03-08] MEDS: LEVAQUIN 750 MG/D5W 750 MG/150 ML IVPB IV SCH (04:46)
[2019-03-08] MEDS: HEPARIN SUBQ SCH ×3 (04:46→21:16)
[2019-03-08] MEDS: FLAGYL 500 MG/NS 500 MG/100 ML IVPB IV SCH ×3 (05:03→21:16)
[2019-03-08 06:23] LABS: BASO# 0.01 X1000 (0.0-0.2); BASO% 0.1 % (0.0-0.8); EOS# 0.13 X1000 (0.0-0.7); EOS% 0.9 % (0.0-10.0); HEMATOCRIT 26.7 % (37.0-47.0); IMM GRAN# 0.05 X1000 (0.0-0.04); IMM GRAN% 0.3 % (0.0-0.5); LYMPH# 1.58 X1000 (1.2-3.4); LYMPH% 10.9 % (20.5-51.1); MCH 30.9 PG (27-31); MCHC 33.7 g/dL (33-37); MCV 91.8 FL (81-99); MONO# 1.27 X1000 (0.11-0.59); MONO% 8.7 % (1.7-9.3); MPV 9.6 FL (7.4-10.4); NEUT# 11.49 X1000 (1.4-6.5); NEUT% 79.1 % (42.2-75.2); PLT 116 X1000 (130-400); RBC 2.91 XMIL (4.2-5.4); RDW 16.8 % (11.5-14.5); WBC 14.53 X1000 (4.8-10.8)
[2019-03-08 06:45] LABS: AGAP 4; BUN 17 mg/dL (8-22); CHLORIDE 101 mmol/L (98-107); COSMO 277; CREATININE 0.4 mg/dL (0.5-0.9); ESTIMATED GFR > 60; GLUCOSE 100 mg/dL (70-104); MAGNESIUM 1.6 mg/dL (1.5-2.7); PHOSPHORUS 1.9 mg/dL (2.7-4.5); POTASSIUM 3.4 mmol/L (3.5-5.1); SODIUM 138 mmol/L (136-145); TCO2 33 mmol/L (25-35)
--- NOTE | 2019-03-08 07:13 | EKG Report ---
Test Performed on : 03/07/2019 8:33:14 PM Test Reason : Tachycardia Blood Pressure : / mmHG Vent. Rate : 111 BPM Atrial Rate : 111 BPM P-R Int : 160 ms QRS Dur : 076 ms QT Int : 298 ms P-R-T Axes : 064 060 051 degrees QTc Int : 405 ms Sinus tachycardia. Otherwise normal ECG When compared with ECG of 06-MAR-2019 05:02, Nonspecific T wave abnormality now evident in Lateral leads Confirmed by Joanne HERNANDEZ, Alfredo Campbell ([id number]) on 03/08/2019 3:27:33 PM
[2019-03-08] MEDS: SODIUM CHLORIDE 0.9% INJ SCH ×2 (09:12→21:17)
[2019-03-08] MEDS: PROTONIX IV SCH ×2 (09:12→21:16)
[2019-03-08] MEDS: NICODERM PATCH TD SCH (09:12)
[2019-03-08] MEDS: LR 1,000 ML IV SCH (09:18)
[2019-03-08] MEDS: VASOTEC IV SCH ×2 (09:20→14:17)
[2019-03-08] MEDS: LIDODERM TOP SCH (09:25)
[2019-03-08] MEDS: DIFLUCAN 400 MG/NS 400 MG/200 ML IVPB IV SCH (09:25)
[2019-03-08] MEDS: SPIRIVA INH SCH (10:00)
[2019-03-08] MEDS: DILAUDID PCA VIAL IV PRN (13:03)
[2019-03-08] MEDS: M V I IV SCH ×8 (13:20)
[2019-03-08] MEDS: MAGNESIUM SULFATE IV SCH ×8 (13:20)
[2019-03-08] MEDS: TPN ELECTROLYTES IV SCH ×8 (13:20)
[2019-03-08] MEDS: [UNRECOGNIZED DRUG - OTHER] IV SCH ×8 (13:20)
[2019-03-08] MEDS: LIPOSYN 20% 250 ML IV SCH (13:21)
[2019-03-08] MEDS: POTASSIUM CHLORIDE 20 MEQ/SWI 20 MEQ/100 ML IVPB IV SCH ×2 (13:22→15:24)
--- NOTE | 2019-03-08 13:39 | Diag Imaging Result Doc PS360 ---
EXAM: CT HEAD W/O CONTRAST INDICATION: encephalopathy TECHNIQUE: This exam was performed using automated exposure control, adjustment of mA or kV according to patient size, and/or use of iterative reconstruction technique. COMPARISON: None. FINDINGS: There is mild patchy low attenuation in the periventricular and subcortical white matter suggesting very mild microangiopathy. There is no definite acute infarct given the limited sensitivity of CT versus MRI. There is no discrete intracranial mass, mass effect, or intracranial hemorrhage. There are small left maxillary sinus and right sphenoid sinus mucus retention cysts. Surrounding soft tissues and bony structures are essentially unremarkable, otherwise. IMPRESSION: Suggestion of mild white matter microangiopathy. No definite acute intracranial pathology by CT. Electronically signed by James Perez 03/08/2019 1:37 PM
--- NOTE | 2019-03-08 15:19 | PROGRESS NOTE ---
DATE: 03/08/2019 INTERVAL HISTORY: Patient was transferred to the floor. However, she had developed episodes of sinus tachycardia with heart rate more than 110 so she was transferred back to ICU. Others. She was also started on IV enalapril for her essential hypertension. Her potassium was low which was being repleted. SUBJECTIVE: Patient has been confused since morning time where she would mumble which would not make sense. She had received a dose of Benadryl yesterday but however she has not received any other new medications for which head CT was ordered, which comes out as unremarkable at the moment. VITALS: Temperature 98.5 degrees, pulse 89, respiratory rate 20, blood pressure 160/70. She is saturating 97% on 2 L nasal cannula. PHYSICAL EXAMINATION: She does not appear in any acute distress. Oral cavity is dry.Lungs: Air entry bilaterally equal. No wheeze, rhonchi, or crackles. S1, S2 normal. Not tachycardic. No murmur, rub, or gallop. Abdomen: Soft. Midline dressing of recent laparotomy. She had a drain coming out with sanguinous discharge. No bowel sounds. She has a nasogastric tube. She has right-sided PICC line. No lower extremity edema. LABS: Suggestive of improving leukocytosis, normocytic anemia, persistent thrombocytopenia, hypokalemia being repleted, low phosphate, normal kidney function. Microbiology, no data. IMAGING: Head CT finding as mentioned. ASSESSMENT AND PLAN: 1. Perforated duodenal ulcer likely due to use of nonsteroidal anti-inflammatory drugs for pain, prednisone for chronic obstructive pulmonary disease and active smoking, status post laparotomy and repair with omental patch on March 05. Continue NG tube, laparotomy wound, abdominal drain management as per surgery, pantoprazole intravenous drip, NPO status, intravenous antibiotics and antifungals as per surgery recommendation. She is on patient- controlled analgesia pump as per surgical team recommendation for pain management. She also has a peripherally inserted central catheter line for total parenteral nutrition. 2. Acute blood loss anemia because of perforated viscus and blood loss sustained during surgery status post 4 units of blood transfusion with stable hemoglobin now. Continue to monitor CBC. 3. Essential hypertension. Continue intravenous enalapril and intravenous labetalol as needed. 4. Paroxysmal Tachycardia: I was told her heart rate jumped to >150 bpm. I will get a stat EKG and I asked to give IV labetalol. 4. Others, continue albuterol ipratropium nebulization and tiotropium for history of COPD, [employer] hydromorphone pump for her chronic back pain. 5. Disposition. I will observe patient in ICU for 24 hours and will consider transfer to [facility]. Plan of care discussed with the patient and the nursing team. I will also try and get in touch with patient's family inform about plan of care. cc: Mart Major MD MTDRex
--- NOTE | 2019-03-08 15:20 | PROGRESS NOTE ---
DATE: 03/08/2019 ADDENDUM REPORT Addendum to previously dictated progress note: I called the patient's and discussed patient's clinical course with him. I answered all of his questions. Paroxysmal tachycardia: EKG says atrial fibrillation with rapid ventricular rate. However, on my review of ekg it could be other form of regular supraventricular tachycardia. I have started her on Diltiazem drip. Considering recent surgery and perforated ulcer, she may not be a candidate for anticoagulation. Depending on her course, she may need cardiology evaluation. cc: Mart Major MD MTDD
[2019-03-08] MEDS ORDERED: NS NEB INH SCH (16:15)
[2019-03-08] MEDS: LABETALOL IV PRN (16:21)
[2019-03-08] MEDS ORDERED: CARDIZEM IV ONE (16:38)
[2019-03-08] MEDS ORDERED: CARDIZEM 125 MG in NS 100 ML IV SCH (16:45)
[2019-03-08] MEDS: CARDIZEM 125 MG in D5W 100 ML IV SCH (17:02)
[2019-03-08] MEDS ORDERED: XOPENEX NEB INH SCH (18:00)
[2019-03-08] MEDS: XOPENEX NEB INH SCH ×2 (18:32→21:37)
[2019-03-08] MEDS ORDERED: ATIVAN IV ONE (21:04)
--- NOTE | 2019-03-08 22:42 | ECHO REPORT ---
ORDER DATE: 03/08/2019 MEASUREMENTS: Septal thickness 1.0, left ventricular internal diameter diastole 4.4, posterior wall thickness 0.9. Left ventricular internal diameter in systole 2.7. Aortic root 3.6, left atrium 3.0. SUMMARY: 1. Adequate quality study. There are no subcostal windows available. 2. Aortic valve is trileaflet and opens normally on 2-dimensional images. Peak gradient across aortic valve is 12 mmHg. Mitral, tricuspid, and pulmonic valves are without evidence of structural abnormality with mild mitral regurgitation and trace tricuspid regurgitation. Aortic root is normal in size. 3. Normal left ventricular dimensions demonstrated. Estimated left ejection fraction appears to be at least 65%. No regional wall motion abnormalities evident. Left atrium, right atrium, right ventricle are normal in size with grossly preserved right ventricular systolic function. 4. No pericardial effusion. 5. Inferior vena cava not well demonstrated. cc: Hany Capone MD
[2019-03-08 23:02] LABS: URINE SOURCE CATH
[2019-03-08 23:06] LABS: BILIRUBIN URINE NEGATIVE (NEGATIVE); BLOOD URINE NEGATIVE (NEGATIVE); COLOR YELLOW; GLUCOSE URINE TRACE mg/dL (NEGATIVE); KETONE URINE NEGATIVE (NEGATIVE); LEUKOCYTES URINE NEGATIVE (NEGATIVE); NITRITE URINE NEGATIVE (NEGATIVE); PROTEIN URINE NEGATIVE (NEGATIVE); SP GRAVITY URINE 1.008; TURBIDITY URINE CLEAR (CLEAR); UR EPITHELIAL CELLS <10 /HPF (<10); URINE BACTERIA NEGATIVE /HPF; URINE RBC <10 /HPF (<10); URINE WBC <10 /HPF (<10); UROBILINOGEN URINE NORMAL (NORMAL)
[2019-03-09] MEDS: CARDIZEM 125 MG in D5W 100 ML IV SCH ×2 (02:32→12:12)
[2019-03-09] MEDS: XOPENEX NEB INH SCH ×4 (04:48→22:25)
[2019-03-09] MEDS: FLAGYL 500 MG/NS 500 MG/100 ML IVPB IV SCH ×3 (05:11→21:18)
[2019-03-09] MEDS: HEPARIN SUBQ SCH ×3 (05:11→21:18)
[2019-03-09] MEDS: LEVAQUIN 750 MG/D5W 750 MG/150 ML IVPB IV SCH (05:11)
[2019-03-09 06:05] LABS: AGAP 8; BUN 10 mg/dL (8-22); CALCIUM 8.3 mg/dL (8.8-10.2); CHLORIDE 96 mmol/L (98-107); CHOLESTEROL 117 mg/dL (0-200); COSMO 272; CREATININE 0.4 mg/dL (0.5-0.9); ESTIMATED GFR > 60; GLUCOSE 114 mg/dL (70-104); GOT 19 U/L (10-30); MAGNESIUM 1.6 mg/dL (1.5-2.7); POTASSIUM 3.3 mmol/L (3.5-5.1); PREALBUMIN 12.4 mg/dL (20-40); SODIUM 136 mmol/L (136-145); TCO2 32 mmol/L (25-35); TRIGLYCERIDES 62 mg/dL (35-135)
--- NOTE | 2019-03-09 07:21 | EKG Report ---
Test Performed on : 03/08/2019 3:24:29 PM Test Reason : RHYTHM CHANGE Blood Pressure : / mmHG Vent. Rate : 157 BPM Atrial Rate : 150 BPM P-R Int : 000 ms QRS Dur : 076 ms QT Int : 308 ms P-R-T Axes : 000 072 240 degrees QTc Int : 497 ms Atrial fibrillation. with rapid ventricular response. ST depression, consider subendocardial injury Nonspecific T wave abnormality Abnormal ECG When compared with ECG of 07-MAR-2019 20:33, Atrial fibrillation. has replaced Sinus rhythm. ST now depressed in Anterior leads Nonspecific T wave abnormality, worse in Inferior leads Confirmed by Joanne HERNANDEZ, Alfredo Campbell ([id number]) on 03/09/2019 1:41:03 PM
[2019-03-09] MEDS: LR 1,000 ML IV SCH (09:03)
[2019-03-09] MEDS: NICODERM PATCH TD SCH (09:03)
[2019-03-09] MEDS: DIFLUCAN 400 MG/NS 400 MG/200 ML IVPB IV SCH (09:04)
[2019-03-09] MEDS: PROTONIX IV SCH ×2 (09:04→22:44)
--- NOTE | 2019-03-09 09:12 | EKG Report ---
Test Performed on : 03/09/2019 06:56:09 AM Test Reason : ICU. No order in [place] Blood Pressure : / mmHG Vent. Rate : 091 BPM Atrial Rate : 091 BPM P-R Int : 158 ms QRS Dur : 086 ms QT Int : 376 ms P-R-T Axes : 074 070 081 degrees QTc Int : 462 ms Sinus rhythm. with premature atrial complexes. with aberrant conduction. Nonspecific T wave abnormality Abnormal ECG When compared with ECG of 09-MAR-2019 06:55, (Unconfirmed) No significant change was found Confirmed by Joanne HERNANDEZ, Alfredo Campbell ([id number]) on 03/09/2019 1:42:02 PM
[2019-03-09] MEDS: SPIRIVA INH SCH (09:31)
[2019-03-09] MEDS: LIDODERM TOP SCH (09:39)
[2019-03-09] MEDS: SODIUM CHLORIDE 0.9% INJ SCH ×2 (09:44→22:44)
[2019-03-09] MEDS: [UNRECOGNIZED DRUG - OTHER] IV SCH ×8 (12:10)
[2019-03-09] MEDS: MAGNESIUM SULFATE IV SCH ×8 (12:10)
[2019-03-09] MEDS: M V I IV SCH ×8 (12:10)
[2019-03-09] MEDS: TPN ELECTROLYTES IV SCH ×8 (12:10)
[2019-03-09] MEDS: LIPOSYN 20% 250 ML IV SCH (12:12)
[2019-03-09] MEDS ORDERED: MAGNESIUM SULFATE 2 GM/S.W.I. 2 GM/50 ML IVPB IV ONE (12:39)
--- NOTE | 2019-03-09 12:43 | GENERAL SURGERY PROGRESS NOTE ---
DATE: 03/09/2019 SUBJECTIVE: Patient seems to be doing okay. She did have some altered mental status through the night. She stayed in the ICU secondary to going into atrial fibrillation with RVR, but she has converted now. She is on a Cardizem drip. OBJECTIVE: Vital Signs: Patient is currently afebrile. Her vital signs have been stable. General: No acute distress. Alert, interactive. Cardiovascular: Regular rate and rhythm. Lungs: Grossly clear. Abdomen: Soft. Appropriately tender. LANG drain in place with less than 100 recorded out. Her NG tube is in place. She has probably had a little bit of gastric trauma, has a little bit of blood in it. LABORATORY: CBC is pending for this morning, but yesterday hematocrit was 26. Reviewed labs. Her pre-albumin this morning is 12.4. ASSESSMENT AND PLAN: This is a 63-year-old female, currently postoperative day #4 from open Rodrigue patch repair of perforated ulcer. Postoperative state. At this time, continue current treatment. Continue antibiotics. I think the patient could likely be transferred up to the CICU, which would probably help her delirium. We will plan on doing an upper GI study tomorrow for evaluation of repair. We will keep her on her TPN. She is on Protonix twice a day and she is on heparin. cc: Giorgio Horvath MD
[2019-03-09 13:17] LABS: ALBUMIN 2.6 g/dL (3.5-5.0); DIRECT BILIRUBIN 0.1 mg/dL (0.00-0.20); TOTAL BILIRUBIN 0.21 mg/dL (0.20-1.00); TOTAL PROTEIN 5.1 g/dL (6.3-8.3)
[2019-03-09] MEDS: POTASSIUM CHLORIDE 20 MEQ/SWI 20 MEQ/100 ML IVPB IV SCH ×2 (13:21→14:30)
--- NOTE | 2019-03-09 13:33 | PROGRESS NOTE ---
DATE: 03/09/2019 SUBJECTIVE: This morning Ms. Hauser refers to be doing okay. She has already been seen by surgery. There were about 4 family members at the bedside at the time of the encounter. OBJECTIVE: Vital Signs: Blood pressure is 160/80, pulse 91, respirations 21, and temperature 97.7 degrees. General: Ms. Hauser is a 63-year-old male. She is in bed in no distress. Mucosa is pink and moist. Anicteric. Acyanotic. Neck: Supple. Chest: Air entry is bilaterally reduced. There is mild prolongation of the expiratory phase of respiration and some diffuse rhonchi. No crackles. Cardiovascular: Regular rate and rhythm with occasional extrasystolic beats. Abdomen: Soft. There is a midline surgical wound which is covered with sterile dressing. There is also a LANG drain on the right side. Extremities: No pedal edema. DENTURE LABORATORY TECHNICIAN: Patient is awake, alert, and oriented. NG tube is in place. LABORATORY DATA: Current Data: There is no CBC. Chemistry is also reviewed, and is unremarkable. CURRENT MEDICATIONS: Have all been reviewed. ASSESSMENT: 1. Acute abdomen on presentation secondary to perforated duodenal ulcer. Patient is status post exploratory laparotomy with Rodrigue patch repair. Today is day 4 postop. 2. Anemia secondary to acute blood loss. Patient is status post 4 PRBC transfusion. 3. Paroxysmal atrial fibrillation, currently rate controlled on Cardizem drip. The patient will get cardiology also to evaluate the patient. 4. History of COPD with mild bronchospasm. The patient is getting p.r.n. nebulizations. 5. Tobacco dependence. Patient has been counseled. 6. In general today, Ms. Hauser will be transferred from the ICU to [facility]. We are going to continue with Cardizem drip and all the other management. Cardiology has been consulted to evaluate her. cc: Allan Evans MD
--- NOTE | 2019-03-09 15:26 | PROGRESS NOTE ---
DATE: 03/07/2019 INTERVAL HISTORY: Ms. Hauser's repeat blood count after two units of transfusion, both still low, and she received two more units of blood transfusion, following which she had appropriate rise in her hemoglobin. Overnight she also had episode of tachycardia with heart rate jumping up to 140 to 150, an episode of shortness of breath, and she was given Albuterol/ipratropium nebulization and the teletypesetter monitor suggests a sinus tachycardia with premature atrial contractions. She was not having any chest pain. In the morning time she is feeling better. She says she is missing her home pain medications and I discussed with her that we will not be able to use NG tube to give her medications at the moment and that she is getting intravenous SCREW DOWN medications. I discussed about starting her on Lidocaine patch. Meanwhile, she has received a right-sided arm PICC line and is getting total parenteral nutrition. Her normal saline has been stopped and labetalol has been ordered for her essential hypertension. OBJECTIVE: Currently vital signs: Temperature 98.1, pulse 112, respiratory rate 24, blood pressure 167/93, saturating 99% on 2 L nasal cannula. General: Not in any acute distress. She is anxious for not getting pain medication. Mouth: Oral cavity is dry. Eyes: Mild conjunctival pallor. No icterus. Nose: She has nasogastric tube. Skin: No cyanosis. Extremities: She has prominent clubbing. She has right-sided arm PICC line. Lungs: She has decreased breath sounds bilaterally because of COPD. No wheeze, rhonchi, or crackles. Cardiovascular: S1, S2 normal. Tachycardic. Regular. No murmur, rub, or gallop. Abdomen: Midline dressing of recent laparotomy and a drain coming out with serosanguineous discharge. No bowel sounds. Genitourinary: Her urine catheter has been removed. LABS: Suggestive of leukocytosis, normocytic anemia, thrombocytopenia. She does have normal electrolytes. Normal kidney function. She has a phosphorus of 2.4. MICROBIOLOGY: No current data. IMAGING: A chest x-ray was ordered overnight because of her shortness of breath, which appears to have clear lung live and COPD changes. ASSESSMENT AND PLAN: 1. Perforated duodenal ulcer due to use of NSAIDs, prednisone for chronic obstructive pulmonary disease, and active smoking, status post laparotomy and repair with omental patch on 03/05/2019. Continue nasogastric tube suction, laparotomy wound with drain management, and pain management with SCREW DOWN pump as per Surgery recommendation. She is also on intravenous pantoprazole drip, intravenous metronidazole, levofloxacin, and fluconazole as per Surgery recommendation. I will stop intravenous fluids since she has been receiving intravenous nutrition through PICC line. I appreciate Surgery recommendation about changing the SCREW DOWN pump to intravenous hydromorphone as needed in the future. 2. Acute blood loss anemia because of perforated viscus and blood loss sustained during surgery. She is status post four units of packed red blood cells with appropriate rise. She does have thrombocytopenia but platelet count is more than 100,000. 3. Essential hypertension. I will start her on intravenous labetalol as needed. 4. Chronic obstructive pulmonary disease. Continue Albuterol/ipratropium nebulization every six hours and oxygen through nasal cannula. I will also start her on Lidocaine patch for chronic back pain. DISPOSITION: The patient appears to be hemodynamically stable now and my plan is to transfer her down to routine surgical floor. Plan of care discussed with the patient. All of her questions have been satisfactorily answered. cc: Mart Major MD
--- NOTE | 2019-03-09 16:17 | GENERAL SURGERY PROGRESS NOTE ---
DATE: 03/07/2019 SUBJECTIVE: The patient seems to be doing okay. Nursing staff reports she did have a coughing fit, but otherwise has been doing okay. She has been hemodynamically stable. Nursing staff reports coughing fit today. She is given albuterol, but that did make her a little tachycardia. Otherwise, she has been doing okay. OBJECTIVE: Vital Signs: Patient is currently afebrile. Her vital signs are stable. General exam: No acute distress. Cardiovascular: Some tachycardia. Lungs: Grossly clear. Abdomen: Soft, appropriately tender. LANG drain in place with very minimal output, but does not look bilious. LABORATORY: White blood cell count 17, hematocrit 28, platelet count 104. Remainder of labs reviewed. Pre-albumin is 13.3. ASSESSMENT AND PLAN: A 63-year-old female, currently postoperative day #2 from open Rodrigue patch repair. 1. Postoperative state: At this time, her hematocrit did drop yesterday. We have held her heparin. She did get what sounds like at least 4 units of blood. She has been doing okay hemodynamically the entire time. I think we can get her Boone catheter out. I think she can get up to bedside. I think overall she can probably be transferred to the floor. I do not see any obvious signs of bleeding besides her hematocrit dropping, and she has stayed stable after that. I think if we recheck her labs in the morning and they are still stable, we can restart her heparin. Otherwise, continue supportive care. We will need to keep her nasogastric tube in until she is at least postoperative day #5 and then consider upper GI series. cc: Giorgio Horvath MD
[2019-03-09] MEDS: XYLOCAINE 2% VISCOUS MT PRN (18:10)
--- NOTE | 2019-03-09 20:10 | CARDIOLOGY CONSULTATION ---
DATE: 03/09/2019 CHIEF COMPLAINT ON PRESENTATION: Abdominal pain. HISTORY OF PRESENT ILLNESS: Ms. Hauser is a 63-year-old white female with a history of hypertension and chronic back pain. She apparently was discharged on the and had complaints of abdominal pain. She had a prolonged usage of nonsteroidals and ultimately was found to have a perforated duodenal ulcer. Subsequently, she was taken to the operating room on the and had an exploratory laparotomy with a Rodrigue patch repair. Since that time, she has been in the hospital. She had an episode of heart racing yesterday and was found to be in atrial fibrillation based on EKG at 3:30 in the afternoon. She was sent to the ICU, placed on a diltiazem drip, and subsequently converted. Since that time, she has been feeling well. She has no complaints. She has had no palpitations presently. She is somewhat confused this morning. She is asking repetitive questions, but otherwise has no pain complaints. She is not taking oral medications at this point. PAST MEDICAL HISTORY: 1. Hypertension. 2. COPD. 3. Chronic low back pain. SOCIAL HISTORY: 40+ pack year history of smoking. Occasional alcohol use. No illicit drugs. FAMILY HISTORY: Significant for coronary disease in her father. REVIEW OF SYSTEMS: A 10 system review of systems is negative except for those things mentioned in HPI. PHYSICAL EXAMINATION: Vital Signs: The patient has been afebrile. Heart rate is 91. Blood pressure 160/80. General: She is in no acute distress. HEENT: Oropharynx is moist. Poor dentition. Eye examination is pink conjunctiva, white sclera. Neck: Examination shows no obvious thyromegaly or thyroid tenderness. Cardiovascular: She sounds to be in a regular rate and rhythm. I do not hear any obvious murmurs. She has no S3. She has no lower extremity edema. Chest: Exam sounds relatively clear to auscultation bilaterally. She has no increased work of breathing. Abdomen: Soft. Mild diffuse tenderness to palpation. Skin: Warm and dry throughout without any rashes. Neurological: Moving all extremities well. She has no lateralizing deficits. PERTINENT DATA: Her echo demonstrated a normal ejection fraction. No significant valvular abnormalities are identified. Chest x-ray on the shows COPD changes with suggestion of mild interstitial edema. EKG reviewed by me on the shows atrial fibrillation with rapid ventricular response rate of 157 beats per minute. Subsequent EKG on the shows sinus rhythm. LAB DATA: White count of 14.5, hematocrit 26, platelet count 116,000. Sodium today was 136, potassium 3.3, BUN 10, creatinine 0.4, magnesium level 1.6. She has not had a TSH. ASSESSMENT: Ms. Hauser is a 63-year-old female with new onset atrial fibrillation. Admission was for a perforated duodenal ulcer. PLAN: We will ensure she has repleted electrolytes. She would benefit from anticoagulation based on a CHADS-VASc score of 2 for female sex and hypertension. When she is stable from a postoperative standpoint, we will consider initiation of anticoagulation. It does not appear that she has had any repletion of her electrolytes as of today. cc: Amauri Méndez MD
[2019-03-10] MEDS: CARDIZEM 125 MG in D5W 100 ML IV SCH (02:03)
[2019-03-10] MEDS: XOPENEX NEB INH SCH ×4 (03:06→21:00)
[2019-03-10] MEDS: LEVAQUIN 750 MG/D5W 750 MG/150 ML IVPB IV SCH (04:59)
[2019-03-10] MEDS: HEPARIN SUBQ SCH ×3 (04:59→21:10)
[2019-03-10 05:45] LABS: AGAP 11; BUN 10 mg/dL (8-22); CALCIUM 8.1 mg/dL (8.8-10.2); CHLORIDE 95 mmol/L (98-107); COSMO 270; CREATININE 0.5 mg/dL (0.5-0.9); ESTIMATED GFR > 60; GLUCOSE 117 mg/dL (70-104); MAGNESIUM 1.8 mg/dL (1.5-2.7); PHOSPHORUS 3.4 mg/dL (2.7-4.5); POTASSIUM 3.1 mmol/L (3.5-5.1); SODIUM 135 mmol/L (136-145); TCO2 29 mmol/L (25-35)
[2019-03-10] MEDS: FLAGYL 500 MG/NS 500 MG/100 ML IVPB IV SCH ×3 (06:23→21:10)
[2019-03-10] MEDS: NICODERM PATCH TD SCH ×2 (07:54→08:03)
[2019-03-10] MEDS: DIFLUCAN 400 MG/NS 400 MG/200 ML IVPB IV SCH ×2 (07:54→08:02)
[2019-03-10] MEDS: LR 1,000 ML IV SCH (08:03)
--- NOTE | 2019-03-10 09:21 | Diag Imaging Result Doc PS360 ---
EXAM: GI SERIES PARTIAL HISTORY: Evaluate repair of perforated duodenal ulcer TECHNIQUE: Partial upper GI exam COMPARISON: None. FINDINGS: 13 films taken. Fluoroscopy time is one minute 36 seconds. Total dose is 2145 cGy2. Contrast was placed through the nasogastric tube with filling of the stomach and emptying into the duodenum. No extravasation. There are multiple midline skin loren and there is a surgical drain in the mid right abdomen. IMPRESSION: Normal flow of barium through the stomach and into the duodenum. Electronically signed by Peyman Del Real 03/10/2019 9:19 AM
[2019-03-10] MEDS: LIDODERM TOP SCH ×2 (09:24→21:11)
--- NOTE | 2019-03-10 09:42 | PROGRESS NOTE ---
DATE: 03/10/2019 SUBJECTIVE: This morning Ms. Hauser refers to be feeling a whole lot better. She said this is the very 1st night that she has slept so well. She denies any acute complaints. She has not had any bowel movement and she is not passing any gas. OBJECTIVE: VITAL SIGNS: Blood pressure is 149/61, pulse of 85, respirations 16, temperature is 97.4 degrees. General: Ms. Hauser is a 63-year-old female. She is in bed. Not seemingly in distress. Mucosa is pink and moist. Anicteric, acyanotic. Neck: Neck is supple. Chest: Good air entry bilateral. There were no crepitations, no rhonchi. Cardiovascular: Regular rate and rhythm. GI: Abdomen is soft is nondistended. Bowel sounds are hypoactive. There is a new surgical wound in the midline which is covered with sterile dressing. There is a LANG drain on the right side as well. Boone catheter is in place. Extremities: No pedal edema. MOLDING ENGINEER: Patient is awake, alert, and oriented. LABORATORIES: The patient's I's and O's, urine output was 4700. LANG drain output was about 30. CURRENT MEDICATIONS: Have all been reviewed. ASSESSMENT: 1. Acute abdomen on presentation secondary to perforated duodenal ulcer. Patient is status post exploratory laparotomy with Rodrigue patch repair. Today is day 5. The patient has a mildly distended abdomen and has not had any bowel movement, so there is a plan for GI series to rule out any obstruction. 2. Anemia secondary to acute blood loss. The patient is status post PRBC transfusion. Hemoglobin and hematocrit is stable. 3. Paroxysmal atrial fibrillation, currently rate controlled on Cardizem drip. Cardiology is on board. 4. History of chronic obstructive pulmonary disease. We will continue p.r.n. nebulization. 5. Tobacco dependence. Patient has been counseled. In general, Ms. Hauser feels okay. She is in very good high spirits. However, she has not had any bowel movement and she has not passed any gas. Abdomen is slightly distended. Surgery has already evaluated the patient and there is an order for a GI series to rule out any obstruction. We are going to follow up with the results and further recommendations from surgery. cc: MD LIDIA Bhagat
[2019-03-10] MEDS: PROTONIX IV SCH ×2 (09:56→21:14)
[2019-03-10] MEDS: SODIUM CHLORIDE 0.9% INJ SCH ×2 (09:57→21:15)
[2019-03-10] MEDS: SPIRIVA INH SCH (11:13)
[2019-03-10] MEDS: LIPOSYN 20% 250 ML IV SCH ×2 (12:45→23:44)
[2019-03-10] MEDS: POTASSIUM CHLORIDE 20 MEQ/SWI 20 MEQ/100 ML IVPB IV SCH ×2 (12:45→14:44)
[2019-03-10] MEDS ORDERED: TPN ELECTROLYTES 20 ML, MAGNESIUM SULFATE 5 MEQ, M.V.I.-12 10 ML, MTE CONCENTRATE 1 ML,... IV SCH ×8 (13:00)
--- NOTE | 2019-03-10 13:18 | GENERAL SURGERY PROGRESS NOTE ---
DATE: 03/08/2019 SUBJECTIVE: The patient seems to be doing okay. She did have an episode with tachycardia. She was sent back down from the floor to the ICU. The patient seems to be doing okay. OBJECTIVE: Vital signs: The patient is currently afebrile. Her vital signs are stable. General exam: No acute distress. Cardiovascular: Regular rate and rhythm. Lungs are clear. Abdomen soft, appropriately tender. LANG drain in place with serosanguineous output. LABORATORY: hgb 14, hematocrit 26, platelet count 116. ASSESSMENT AND PLAN: A 51-year-old female currently postoperative day #3 from open Rodrigue patch repair perforated ulcer. Postoperative state: At this time she seems to be doing okay. We have been holding her heparin but I think it is probably okay to restart it. She is on Diflucan, Levaquin, and Flagyl. We will continue that. Will continue Protonix every 12 hours. Will plan on studying her with upper GI on postoperative day #5. cc: Giorgio Horvath MD MTDD
--- NOTE | 2019-03-10 14:01 | GENERAL SURGERY PROGRESS NOTE ---
DATE: 03/10/2019 SUBJECTIVE: Patient moved from the ICU to the CICU. She seems to be doing well and doing better mentally. At this point, she is currently postoperative day #5. She has been hemodynamically stable, although she is on a Cardizem drip for atrial fibrillation. She has not been any kind of dysrhythmia. Her NG tube and LANG drains are in place. Her LANG drain has minimal output. It does not look like a leak, but we will get an upper gastrointestinal series today to evaluate it. If she does have a leak, we will continue nasogastric tube decompression. If no leak, we will remove NG tube and give her something to drink. cc: Giorgio Horvath MD
[2019-03-10] MEDS ORDERED: MAGNESIUM SULFATE 2 GM/S.W.I. 2 GM/50 ML IVPB IV ONE (14:24)
--- NOTE | 2019-03-10 15:14 | CARDIOLOGY PROGRESS NOTE ---
DATE: 03/10/2019 SUBJECTIVE: The patient continues to be somewhat confused but she is very pleasant. She has no complaints. She apparently went into atrial fibrillation earlier today, around the time of removal of her NG tube. OBJECTIVE: Vital signs: She is afebrile. Heart rate is currently 78, blood pressure 147/71. She appears to be in sinus. General: She is in no acute distress. Cardiovascular: She sounds to be in a regular rate and rhythm. She has no murmurs. No S3. Chest: Sounds clear from the anterior and axillary positions. No increased work of breathing. Abdomen: Soft. Mild diffuse tenderness. Minimal bowel sounds were heard. PERTINENT DATA: Sodium 135, potassium 3.1, BUN 10, creatinine 0.5, magnesium level 1.8. ASSESSMENT: Ms. Hauser is a 63-year-old female who came in with a perforated duodenal ulcer, subsequent exploratory laparotomy with Rodrigue patch repair. She has had episodes of atrial fibrillation during this hospitalization. PLAN: I will try to initiate some oral metoprolol at 12.5 mg p.o. q.6 hours. We will attempt to wean the diltiazem. She will likely need anticoagulation when safe from a surgical standpoint as she has a CHADS-VASc score of 2. She has had an echocardiogram performed showing normal ejection fraction. We will have a TSH checked for the morning. cc: Amauri Méndez MD
[2019-03-10] MEDS: LOPRESSOR PO SCH ×2 (15:24→21:10)
[2019-03-11] MEDS: LOPRESSOR PO SCH ×4 (02:54→21:10)
[2019-03-11] MEDS: XOPENEX NEB INH SCH ×4 (03:16→22:56)
[2019-03-11] MEDS: LEVAQUIN 750 MG/D5W 750 MG/150 ML IVPB IV SCH (05:05)
[2019-03-11] MEDS: HEPARIN SUBQ SCH ×3 (05:05→21:11)
[2019-03-11] MEDS: FLAGYL 500 MG/NS 500 MG/100 ML IVPB IV SCH ×3 (05:05→21:11)
[2019-03-11 06:21] LABS: AGAP 10; BUN 22 mg/dL (8-22); CALCIUM 8.6 mg/dL (8.8-10.2); CHLORIDE 96 mmol/L (98-107); COSMO 275; CREATININE 0.7 mg/dL (0.5-0.9); ESTIMATED GFR > 60; GLUCOSE 118 mg/dL (70-104); MAGNESIUM 2.1 mg/dL (1.5-2.7); PHOSPHORUS 4.4 mg/dL (2.7-4.5); SODIUM 135 mmol/L (136-145); TCO2 29 mmol/L (25-35)
[2019-03-11] MEDS: NICODERM PATCH TD SCH (08:25)
[2019-03-11] MEDS: LIDODERM TOP SCH (08:25)
[2019-03-11] MEDS: DIFLUCAN 400 MG/NS 400 MG/200 ML IVPB IV SCH (08:26)
[2019-03-11] MEDS: LR 1,000 ML IV SCH (10:09)
[2019-03-11] MEDS: PROTONIX PO SCH ×2 (10:49→21:11)
[2019-03-11] MEDS: SPIRIVA INH SCH (11:37)
--- NOTE | 2019-03-11 14:16 | PROGRESS NOTE ---
DATE: 03/11/2019 SUBJECTIVE: This morning Ms. Hauser refers to be feeling a whole lot better still has not had any bowel movement nor any gas but she denies any abdominal pain and she seems to be tolerating her clear liquids. OBJECTIVELY: Vitals: Blood pressure is 165/71, pulse of 87, respiration is 17, temperature 97.6 degrees, patient is saturating 97% on 2 L. General: Ms. Hauser is a 63-year-old female she is in bed, no distress. Mucosa is pink and moist. Anicteric. Acyanotic. Neck: Supple. Chest: Clear to auscultation. No crepitations, no rhonchi. Cardiovascular: Regular rate and rhythm. No murmurs, no rubs, no gallops. Abdomen: Soft. It is distended in the lower abdomen, is tympanic on percussion. Bowel sounds are hypoactive. There is a surgical wound on the midline which is covered with sterile dressing. LANG drain is also noted. 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 No focal neurological deficit. LABORATORY DATA: WBC is 14.53, hemoglobin is 9.0, platelet count of 116,000. Chemistry is also reviewed. TSH is 7.65, potassium is up to 4.0. ASSESSMENT: 1. Acute abdomen on presentation secondary to perforated duodenal ulcer. Patient is status post exploratory laparotomy with Rodrigue patch repair. Today is day 6 postop. 2. Postoperative ileus noted. So far electrolytes have all been replaced. We will encourage the patient to sit up more in the chair and be more mobile to help with mobilizing the gut. I have also discontinued her patient-controlled analgesia pump. We will use p.r.n. pain medication as needed since the opioid could potentially be contributing to her paralyzed gut. 3. Anemia secondary to acute blood loss. Hemoglobin and hematocrit is stable. The patient is status post 4 packed red blood cell transfusion. 4. Paroxysmal atrial fibrillation currently rate controlled. 5. History of chronic obstructive pulmonary disease not in exacerbation. 6. Tobacco dependence. Patient has been counseled. 7. Elevated TSH. We are going to do a free T4 to see if it is consistent with hypothyroidism. We will treat it since it could be, if it is then it could be contributing to the paralyzed gut. In general Ms. Hauser seems to be doing a lot better. She is tolerating her clears but she has not had any bowel movement. Her TSH is minimally elevated. We are going to do a free T4 to see the pattern. Will continue to replace all the electrolyte abnormalities. She is still getting TPN. We are going to discontinue the Boone catheter today and get Ms. Hauser to be more mobile. cc: Allan Evans MD
[2019-03-11] MEDS: TPN ELECTROLYTES 20 ML, MAGNESIUM SULFATE 5 MEQ, M.V.I.-12 10 ML, MTE CONCENTRATE 1 ML,... IV SCH ×8 (14:24)
[2019-03-11] MEDS: DILAUDID IV PRN ×2 (18:42→21:07)
--- NOTE | 2019-03-11 18:46 | GENERAL SURGERY PROGRESS NOTE ---
DATE: 03/11/2019 SUBJECTIVE: Doing well. No nausea. NG tube was removed. No fevers. No tachycardia. OBJECTIVE: Abdomen is soft, 97% on 2 L. LABS: I reviewed her labs. Creatinine is 0.7. No CBC this morning. ASSESSMENT AND PLAN: A 63-year-old female status post Rodrigue patch repair of perforated duodenal ulcer. She is doing well. We will give her some sips of clears today and plan on advancing if she tolerates with return of bowel function more. cc: Michael Kennedy MD
[2019-03-11] MEDS: LIPOSYN 20% 250 ML IV SCH (23:43)
[2019-03-12] MEDS: DILAUDID IV PRN (01:35)
[2019-03-12] MEDS: LOPRESSOR PO SCH ×4 (02:03→21:23)
[2019-03-12] MEDS: XOPENEX NEB INH SCH ×2 (03:19→11:30)
[2019-03-12] MEDS: LABETALOL IV PRN (04:34)
[2019-03-12] MEDS: HEPARIN SUBQ SCH ×3 (04:57→21:23)
[2019-03-12] MEDS: LEVAQUIN 750 MG/D5W 750 MG/150 ML IVPB IV SCH (04:58)
[2019-03-12] MEDS: FLAGYL 500 MG/NS 500 MG/100 ML IVPB IV SCH ×3 (05:02→21:23)
[2019-03-12 06:11] LABS: AGAP 11; BUN 20 mg/dL (8-22); CALCIUM 8.7 mg/dL (8.8-10.2); CHLORIDE 97 mmol/L (98-107); COSMO 276; CREATININE 0.6 mg/dL (0.5-0.9); ESTIMATED GFR > 60; GLUCOSE 126 mg/dL (70-104); MAGNESIUM 1.7 mg/dL (1.5-2.7); PHOSPHORUS 3.3 mg/dL (2.7-4.5); POTASSIUM 3.9 mmol/L (3.5-5.1); SODIUM 136 mmol/L (136-145); TCO2 28 mmol/L (25-35)
[2019-03-12] MEDS: DIFLUCAN 400 MG/NS 400 MG/200 ML IVPB IV SCH (08:50)
[2019-03-12] MEDS: NICODERM PATCH TD SCH (08:50)
[2019-03-12] MEDS: PROTONIX PO SCH ×2 (08:50→21:24)
[2019-03-12] MEDS: LIDODERM TOP SCH (08:56)
[2019-03-12] MEDS: SPIRIVA INH SCH (11:29)
[2019-03-12] MEDS ORDERED: DUONEB (A & A) INH PRN (12:17)
[2019-03-12 12:53] LABS: BASO# 0.03 X1000 (0.0-0.2); BASO% 0.2 % (0.0-0.8); EOS# 0.13 X1000 (0.0-0.7); EOS% 0.9 % (0.0-10.0); HEMATOCRIT 33.1 % (37.0-47.0); HEMOGLOBIN 10.5 g/dL (12.0-16.0); IMM GRAN# 0.07 X1000 (0.0-0.04); IMM GRAN% 0.5 % (0.0-0.5); LYMPH# 1.35 X1000 (1.2-3.4); LYMPH% 8.8 % (20.5-51.1); MCH 31.2 PG (27-31); MCHC 31.7 g/dL (33-37); MCV 98.2 FL (81-99); MONO# 1.77 X1000 (0.11-0.59); MONO% 11.6 % (1.7-9.3); MPV 10.3 FL (7.4-10.4); NEUT# 11.94 X1000 (1.4-6.5); PLT 238 X1000 (130-400); RBC 3.37 XMIL (4.2-5.4); RDW 17.3 % (11.5-14.5); WBC 15.29 X1000 (4.8-10.8)
--- NOTE | 2019-03-12 12:55 | PROGRESS NOTE ---
DATE: 03/12/2019 SUBJECTIVE: Today Ms. Hauser refers to be doing okay. However, she looks to be more tachypneic than days before. She is talking in half sentences. OBJECTIVE: Vitals: Blood pressure is 154/79, pulse of 92, respiration is 18, temperature 98.9 degrees, patient is saturating 95% on 3 L. Her pulse rate has been in the upper 90s since yesterday afternoon. General: Ms. Hauser is a 63-year-old female. She is in bed. She seems to be in mild respiratory distress. Mucosa is pink and moist. Anicteric. Acyanotic. Neck is supple. Chest: Air entry is bilaterally reduced. There is diffuse wheezing in both lung live. There are also some mild crackles posteriorly. Cardiovascular: Regular rate and rhythm, some tachycardic, but no murmurs. Abdomen: Soft, minimally distended. Bowel sounds are present, slightly hypoactive. There is a surgical wound which is covered in the mid anterior abdominal wall. LANG drain is also noted. Central Nervous System: Patient is awake, alert, and oriented. LABORATORY DATA: Chemistry is completely normal. There was no CBC today. We are going to repeat that. The patient still has not had any bowel movement, but she refers to be passing gas. Boone catheter has been removed. ASSESSMENT: 1. Acute abdomen on presentation secondary to perforated duodenal ulcer. Patient is status post exploratory laparotomy with Rodrigue patch repair. Today is day 6 postoperatively. 2. Postoperative ileus noted. Electrolytes have all been replaced. The patient is getting up and being mobilized. She said she has been passing gas, and she is tolerating some clears. 3. Anemia secondary to acute blood loss. Hemoglobin and hematocrit are stable. The patient is status post fall. Packed red blood cell transfusion during the hospital course. 4. Paroxysmal atrial fibrillation. The patient seems to be in sinus at this point. Heart rate, though, is in the upper limit of normal. 5. History of chronic obstructive pulmonary disease. Patient is currently in acute bronchospasm. I think she is probably in exacerbation. We are going to start her on bronchodilation therapy. We are getting a chest x-ray to rule out any potential pneumonia and then go from there. 6. Tobacco dependence. Patient has been counseled. 7. Subclinical hypothyroidism. We will repeat a TSH at a later date to see if it remains persistently elevated. In general, this morning, Ms. Hauser seems to be having more difficulty breathing. She is more bronchospastic. We are going to get a chest x-ray, ABG, re-evaluate the results, and then go from there. She has been started on bronchodilation therapy this morning. cc: Allan Evans MD
--- NOTE | 2019-03-12 13:04 | Diag Imaging Result Doc PS360 ---
EXAM: CHEST-PORTABLE - 03/12/2019 HISTORY: sob TECHNIQUE: Portable chest COMPARISON: 03/07/2019 FINDINGS: The nasogastric tube is been removed. PICC remains in place. Inspiration is mildly shallow, with mild basilar atelectasis, most prominent on the left. There is a possible decrease in basilar interstitial marking prominence. There are no other acute changes identified. IMPRESSION: Mildly shallow inspiration, mild basilar atelectasis. Possible decrease in basilar interstitial edema. Electronically signed by Giuliano Falk 03/12/2019 1:01 PM
[2019-03-12 13:15] LABS: BANDS 4 % (0-1); LYMPHS 16 % (21-51); MONO 18 % (1-9); SEGS 56 % (42-75)
[2019-03-12 13:20] LABS: BE 4.8 mmoll (-3.0-3.0); BLOOD TYPE ARTERIAL; HCO3-(ACT) 28.6 mmoll (20.0-26.0); METHB 1.3 % (0.0-1.5); O2(CT) 12.4 mL/dL (15.0-23.0); O2HB 90.9 % (95.0-99.0); PCO2(98.6) 34 mmHg (35-45); PO2(98.6) 56 mmHg (60-100); SAMPLE BLOOD; SAO2 93.4 % (95.0-100.0); THB 9.7 g/dL (11.5-17.4); pH(98.6) 7.52 (7.35-7.45)
[2019-03-12 13:21] LABS: ALLEN TEST NO; MODALITY CANNULA
[2019-03-12] MEDS: DALIRESP PO SCH (13:40)
[2019-03-12] MEDS: CARDIZEM PO SCH ×2 (13:40→21:24)
--- NOTE | 2019-03-12 13:51 | GENERAL SURGERY PROGRESS NOTE ---
DATE: 03/12/2019 SUBJECTIVE: She was out of bed this morning getting cleaned up. She was having some flatus. No nausea. She is a little winded but she has been on 2 to 3 L overnight. Abdomen is soft. Reviewed her labs. Creatinine 0.6, glucose 120s. No white count this morning and drain serosanguineous. ASSESSMENT AND PLAN: 63-year-old female status post Rodrigue patch repair of perforated ulcer. Will let her have some clear liquids today. Otherwise continue pulmonary toileting, out of bed, physical therapy and nutritional support. cc: Michael Kennedy MD
[2019-03-12] MEDS: TPN ELECTROLYTES 20 ML, MAGNESIUM SULFATE 5 MEQ, M.V.I.-12 10 ML, MTE CONCENTRATE 1 ML,... IV SCH ×8 (14:44)
[2019-03-12] MEDS: DUONEB (A & A) INH SCH ×2 (15:45→19:57)
[2019-03-12] MEDS: LIPOSYN 20% 250 ML IV SCH (23:19)
[2019-03-13] MEDS: DUONEB (A & A) INH SCH ×7 (00:10→23:42)
[2019-03-13] MEDS: CARDIZEM PO SCH ×4 (02:23→20:29)
[2019-03-13] MEDS: LOPRESSOR PO SCH ×3 (02:23→20:29)
[2019-03-13] MEDS: FLAGYL 500 MG/NS 500 MG/100 ML IVPB IV SCH ×3 (05:02→21:52)
[2019-03-13] MEDS: LEVAQUIN 750 MG/D5W 750 MG/150 ML IVPB IV SCH (05:02)
[2019-03-13] MEDS: HEPARIN SUBQ SCH ×3 (05:02→20:29)
[2019-03-13 05:52] LABS: BASO% 0.2 % (0.0-0.8); EOS% 0.9 % (0.0-10.0); HEMATOCRIT 26.4 % (37.0-47.0); HEMOGLOBIN 8.7 g/dL (12.0-16.0); IMM GRAN% 0.3 % (0.0-0.5); LYMPH# 1.26 X1000 (1.2-3.4); LYMPH% 10.8 % (20.5-51.1); MCH 31.2 PG (27-31); MCV 94.6 FL (81-99); MONO% 10.5 % (1.7-9.3); MPV 9.6 FL (7.4-10.4); NEUT# 9.04 X1000 (1.4-6.5); NEUT% 77.3 % (42.2-75.2); PLT 245 X1000 (130-400); RBC 2.79 XMIL (4.2-5.4); RDW 16.6 % (11.5-14.5); WBC 11.69 X1000 (4.8-10.8)
[2019-03-13 05:53] LABS: BASO# 0.02 X1000 (0.0-0.2); EOS# 0.11 X1000 (0.0-0.7); IMM GRAN# 0.03 X1000 (0.0-0.04); MONO# 1.23 X1000 (0.11-0.59)
[2019-03-13] MEDS ORDERED: DULCOLAX PR PRN (06:08)
[2019-03-13 06:18] LABS: AGAP 11; ALBUMIN 2.2 g/dL (3.5-5.0); BUN 14 mg/dL (8-22); CALCIUM 8.2 mg/dL (8.8-10.2); CHLORIDE 97 mmol/L (98-107); COSMO 272; CREATININE 0.5 mg/dL (0.5-0.9); ESTIMATED GFR > 60; GLUCOSE 129 mg/dL (70-104); MAGNESIUM 1.6 mg/dL (1.5-2.7); PHOSPHORUS 3.1 mg/dL (2.7-4.5); POTASSIUM 3.2 mmol/L (3.5-5.1); SODIUM 135 mmol/L (136-145); TCO2 27 mmol/L (25-35)
--- NOTE | 2019-03-13 07:17 | GENERAL SURGERY PROGRESS NOTE ---
DATE: 03/13/2019 SUBJECTIVE: The patient is doing well. Her upper GI series on Wednesday did not show any leak. She has been started on a clear liquid diet. She is passing gas. She has not had a bowel movement. OBJECTIVE: Vital Signs: The patient is currently afebrile. Her vital signs are stable. General Examination: No acute distress. Cardiovascular: Regular rate and rhythm. Lungs: Grossly clear. Abdomen: Soft. Appropriately tender. LANG drain in place with serosanguineous output. Laboratory: White blood cell count is 11, hematocrit 26, platelet count 245,000. Remainder of labs reviewed. ASSESSMENT AND PLAN: A 63-year-old female currently postoperative day number 8 from open Rodrigue patch repair of perforated ulcer. Postoperative state. At this time, she seems to be doing okay. Her hematocrit did drop from 33 to 26.4. I do not see any obvious sources of bleeding externally. Her vital signs have been stable. We will just monitor her. We will start her on a full liquid diet and see how she does. cc: Giorgio Horvath MD
[2019-03-13] MEDS: SPIRIVA INH SCH (07:30)
[2019-03-13] MEDS ORDERED: MAGNESIUM SULFATE 2 GM/S.W.I. 2 GM/50 ML IVPB IV ONE (08:06)
[2019-03-13] MEDS: PROTONIX PO SCH ×2 (09:48→20:29)
[2019-03-13] MEDS: DALIRESP PO SCH (09:48)
[2019-03-13] MEDS: NICODERM PATCH TD SCH (09:49)
[2019-03-13] MEDS: DIFLUCAN 400 MG/NS 400 MG/200 ML IVPB IV SCH (09:49)
[2019-03-13] MEDS: POTASSIUM CHLORIDE 20 MEQ/SWI 20 MEQ/100 ML IVPB IV SCH ×2 (09:49→12:17)
[2019-03-13] MEDS: LIDODERM TOP SCH (09:49)
--- NOTE | 2019-03-13 10:02 | PROGRESS NOTE ---
DATE: 03/13/2019 SUBJECTIVE: This morning, Ms. Hauser refers to be feeling a lot better. The wheezing and the shortness of breath have all improved. OBJECTIVE: Vital Signs: Blood pressure is 157/73, pulse of 89, respirations are 18, temperature is 98.0 degrees, the patient is saturating 94% on 3 L. General Examination: Ms. Hauser is a 63- year-old, female. She is in bed. No distress. HEENT: Mucosa is pink and moist. Anicteric. Acyanotic. Neck: Supple. Chest: Air entry is bilaterally reduced but no wheezing, no crackles. Cardiovascular: Regular rate and rhythm. No murmurs, no rubs, no gallops. 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 Abdomen: Soft. Minimally tender in the lower abdomen. There is a dressing over the surgical wound on the mid anterior abdominal wall. LANG drain is also in place. Extremities: No pedal edema. : Unremarkable. Laboratory Data: WBC is down to 11.69, hemoglobin is 8.7, platelet count of 245,000. Chemistry is also reviewed. Potassium is 3.2. Rest of chemistry is unremarkable. No new imaging studies for this morning. ASSESSMENT: 1. Acute abdomen on presentation secondary to chemical peritonitis from perforated duodenal ulcer. Patient is status post exploratory laparotomy with Rodrigue patch repair. Today is day 7 postoperatively. The patient is currently on antibiotics for peritonitis. Today is day 7. We will plan to treat for a total of 14 days. 2. Postobstructive ileus, improving. We will continue to replace all electrolytes. 3. Anemia secondary to acute blood loss. Hemoglobin and hematocrit are stable. Patient has been transfused 4 units of packed red blood cells during the hospital course. 4. Paroxysmal atrial fibrillation, currently in sinus. 5. History of chronic obstructive pulmonary disease with mild bronchospasm. That is improved. 6. Tobacco dependence. Patient has been counseled. Nicotine patch has been offered. 7. Generalized weakness and deconditioning. Physical therapy has been consulted and we will also plan to eventually transition Ms. Hauser to a rehab if possible. PLAN: This morning, Ms. Hauser refers to be feeling a little better. She says she had a bowel movement. Surgery has advanced the patient's diet to a full liquid diet today. We will continue to encourage Ms. Hauser to participate with physical therapy. We will also consult social work today for rehab arrangements. We are going to continue with the current IV antibiotics for a total of 14 days. cc: Allan Evans MD
[2019-03-13] MEDS: CELEXA PO SCH (12:18)
[2019-03-13] MEDS ORDERED: MAGNESIUM SULFATE IV SCH ×8 (14:00)
[2019-03-13] MEDS ORDERED: [UNRECOGNIZED DRUG - OTHER] IV SCH ×8 (14:00)
[2019-03-13] MEDS ORDERED: TPN ELECTROLYTES IV SCH ×8 (14:00)
[2019-03-13] MEDS ORDERED: M V I IV SCH ×8 (14:00)
[2019-03-13 16:39] LABS: HEMATOCRIT 26.1 % (37.0-47.0); HEMOGLOBIN 8.5 g/dL (12.0-16.0)
[2019-03-13] MEDS: DILAUDID IV PRN (20:38)
[2019-03-13] MEDS: LIPOSYN 20% 250 ML IV SCH (23:19)
[2019-03-14] MEDS: DUONEB (A & A) INH SCH ×6 (03:20→23:30)
[2019-03-14] MEDS: HEPARIN SUBQ SCH ×3 (04:25→20:11)
[2019-03-14] MEDS: LEVAQUIN 750 MG/D5W 750 MG/150 ML IVPB IV SCH (04:25)
[2019-03-14 05:30] LABS: BASO# 0.01 X1000 (0.0-0.2); BASO% 0.1 % (0.0-0.8); EOS# 0.08 X1000 (0.0-0.7); EOS% 0.7 % (0.0-10.0); HEMATOCRIT 26.5 % (37.0-47.0); HEMOGLOBIN 8.7 g/dL (12.0-16.0); IMM GRAN# 0.05 X1000 (0.0-0.04); IMM GRAN% 0.4 % (0.0-0.5); LYMPH% 10.1 % (20.5-51.1); MCHC 32.8 g/dL (33-37); MCV 94.3 FL (81-99); MONO# 1.13 X1000 (0.11-0.59); MONO% 9.5 % (1.7-9.3); MPV 9.5 FL (7.4-10.4); NEUT# 9.46 X1000 (1.4-6.5); NEUT% 79.2 % (42.2-75.2); PLT 312 X1000 (130-400); RBC 2.81 XMIL (4.2-5.4); RDW 16.3 % (11.5-14.5); WBC 11.93 X1000 (4.8-10.8)
[2019-03-14 05:39] LABS: MAGNESIUM 1.8 mg/dL (1.5-2.7); PHOSPHORUS 3.5 mg/dL (2.7-4.5); PREALBUMIN 11.1 mg/dL (20-40)
[2019-03-14] MEDS: FLAGYL 500 MG/NS 500 MG/100 ML IVPB IV SCH ×3 (05:57→22:37)
--- NOTE | 2019-03-14 07:32 | GENERAL SURGERY PROGRESS NOTE ---
DATE: 03/14/2019 SUBJECTIVE: Patient seems to be doing about the same. She tolerated her diet. OBJECTIVE: Vital Signs: Patient is currently afebrile. Her vital signs are stable. General: No acute distress. Cardiovascular: Regular rate and rhythm. Lungs: Grossly clear. Abdomen: Soft, appropriately tender. LANG drain in place with minimal output. LABORATORY DATA: White blood cell count 11, hematocrit 26 which is essentially stable. Pre- albumin is 11. ASSESSMENT AND PLAN: A 63-year-old female with a perforated duodenal ulcer status post Rodrigue patch repair. Postoperative state. At this time, we will advance to a regular diet. She still has severe protein malnutrition, so we will keep her on TPN until we know she is taking in enough p.o. Otherwise, continue supportive care. Discharge likely pending her evaluation by Cardiology. cc: Giorgio Horvath MD
[2019-03-14 07:37] LABS: AGAP 12; BUN 14 mg/dL (8-22); CALCIUM 8.2 mg/dL (8.8-10.2); CHLORIDE 98 mmol/L (98-107); COSMO 270; CREATININE 0.5 mg/dL (0.5-0.9); ESTIMATED GFR > 60; GLUCOSE 130 mg/dL (70-104); POTASSIUM 3.5 mmol/L (3.5-5.1); SODIUM 134 mmol/L (136-145); TCO2 24 mmol/L (25-35)
[2019-03-14] MEDS: SPIRIVA INH SCH (07:59)
[2019-03-14] MEDS: CARDIZEM PO SCH ×2 (09:30→20:10)
[2019-03-14] MEDS: LOPRESSOR PO SCH ×2 (09:30→20:10)
[2019-03-14] MEDS: CELEXA PO SCH (09:30)
[2019-03-14] MEDS: DALIRESP PO SCH (09:31)
[2019-03-14] MEDS: DIFLUCAN 400 MG/NS 400 MG/200 ML IVPB IV SCH (09:31)
[2019-03-14] MEDS: NICODERM PATCH TD SCH (09:31)
[2019-03-14 10:52] LABS: ALB/GLOB RATIO 1.3; ALBUMIN 2.5 g/dL (3.5-5.0); ALKALINE PHOSPHATASE 48 U/L (32-104); DIRECT BILIRUBIN < 0.10 mg/dL (0.00-0.20); GOT 12 U/L (10-30); GPT 8 U/L (10-36); TOTAL BILIRUBIN 0.15 mg/dL (0.20-1.00); TOTAL PROTEIN 4.4 g/dL (6.3-8.3)
[2019-03-14] MEDS: DILAUDID IV PRN ×2 (13:42→20:11)
[2019-03-14] MEDS ORDERED: M V I IV SCH ×8 (14:00)
[2019-03-14] MEDS ORDERED: [UNRECOGNIZED DRUG - OTHER] IV SCH ×8 (14:00)
[2019-03-14] MEDS ORDERED: TPN ELECTROLYTES IV SCH ×8 (14:00)
[2019-03-14] MEDS ORDERED: MAGNESIUM SULFATE IV SCH ×8 (14:00)
[2019-03-14] MEDS ORDERED: LIDODERM TOP PRN (14:01)
[2019-03-14] MEDS: PROTONIX PO SCH ×2 (14:14→20:10)
--- NOTE | 2019-03-14 16:30 | PROGRESS NOTE ---
DATE: 03/14/2019 SUBJECTIVE: This morning Ms. Hauser refers to be feeling a lot better. She has been started on a regular diet and seems to be tolerating it well. Her breathing is also improved. OBJECTIVE: Vital signs: Blood pressure is 142/70, pulse of 73, respirations 16, temperature 98.4 degrees. General: Ms. Hauser is a 63-year-old female. She is still in bed. No distress. HEENT: Mucosa is pink and moist. Anicteric. Acyanotic. Neck: Supple. Chest: Air entry is bilaterally reduced. There is no wheezing. No crackles. There is prolonged expiratory phase of respiration. Cardiovascular: Regular rate and rhythm. Abdomen: Soft. LANG drain is still in place and there is a sterile dressing over the surgical anterior wound. Extremities: No pedal edema. 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 LABORATORY DATA: Has been reviewed. Hemoglobin is up to 8.7, which is fairly the same as yesterday. Chemistry is also reviewed; it is completely unremarkable. ASSESSMENT: 1. Acute abdomen on presentation secondary to chemical peritonitis from perforated duodenal ulcer. The patient is status post exploratory laparotomy with Rodrigue patch repair, today is day 8 postoperatively. She has been started on a regular diet today. 2. Post-obstructive ileus, improved. 3. Anemia secondary to acute blood loss. Patient's hemoglobin and hematocrit are fairly stable. She has been transfused 4 units of PRBC during the hospital course. 4. Paroxysmal atrial fibrillation. Currently in sinus. 5. History of chronic obstructive pulmonary disease with mild exacerbation during the hospital course, improved. 6. Tobacco dependence. The patient has been counseled. 7. Generalized weakness and deconditioning. Physical therapy is on board. PLAN: So in general, Ms. Hauser seems to be doing well. She is having regular bowel movements. There is at least 2 documented from yesterday. Her diet has been advanced to regular. She is still on the TPN, which we will gradually take her off once she is taking adequate oral intake. cc: Allan Evans MD
[2019-03-14] MEDS: LIPOSYN 20% 250 ML IV SCH (23:10)
[2019-03-15] MEDS: DUONEB (A & A) INH SCH ×6 (03:30→22:56)
[2019-03-15] MEDS: HEPARIN SUBQ SCH ×3 (04:22→20:06)
[2019-03-15] MEDS: LEVAQUIN 750 MG/D5W 750 MG/150 ML IVPB IV SCH (04:23)
[2019-03-15] MEDS ORDERED: M V I IV SCH ×8 (06:15)
[2019-03-15] MEDS ORDERED: MAGNESIUM SULFATE IV SCH ×8 (06:15)
[2019-03-15] MEDS ORDERED: [UNRECOGNIZED DRUG - OTHER] IV SCH ×8 (06:15)
[2019-03-15] MEDS ORDERED: TPN ELECTROLYTES IV SCH ×8 (06:15)
[2019-03-15] MEDS: FLAGYL 500 MG/NS 500 MG/100 ML IVPB IV SCH (06:20)
--- NOTE | 2019-03-15 06:31 | GENERAL SURGERY PROGRESS NOTE ---
DATE: 03/15/2019 SUBJECTIVE: Patient seems to be doing well. She is tolerating a regular diet. Overall, she seems to be hemodynamically stable. OBJECTIVE: Vital Signs: Patient is currently afebrile. Her vital signs are stable. General: No acute distress. Cardiovascular: Regular rate and rhythm. Lungs: Grossly clear. Abdomen: Soft, appropriately tender. LANG drain in place with minimal output. ASSESSMENT AND PLAN: A 63-year-old female status post repair of perforated duodenal ulcer with Rodrigue patch. Postoperative state. At this time, patient seems to be doing well. We will stop her TPN. From a surgical point of view, she seems to be doing well. I think she can be discharged from a surgical point of view once okay with the Hospitalist. cc: Giorgio Horvath MD
[2019-03-15] MEDS: SPIRIVA INH SCH (08:01)
[2019-03-15 08:34] LABS: AGAP 9; BUN 17 mg/dL (8-22); CALCIUM 7.8 mg/dL (8.8-10.2); CHLORIDE 94 mmol/L (98-107); CHOLESTEROL 93 mg/dL (0-200); COSMO 262; CREATININE 0.5 mg/dL (0.5-0.9); ESTIMATED GFR > 60; GLUCOSE 134 mg/dL (70-104); GOT 15 U/L (10-30); MAGNESIUM 1.6 mg/dL (1.5-2.7); PHOSPHORUS 3.4 mg/dL (2.7-4.5); POTASSIUM 3.3 mmol/L (3.5-5.1); PREALBUMIN 12.6 mg/dL (20-40); SODIUM 129 mmol/L (136-145); TCO2 26 mmol/L (25-35); TRIGLYCERIDES 59 mg/dL (35-135)
[2019-03-15] MEDS: DALIRESP PO SCH (08:40)
[2019-03-15] MEDS: CELEXA PO SCH (08:40)
[2019-03-15] MEDS: LOPRESSOR PO SCH ×2 (08:40→20:06)
[2019-03-15] MEDS: NICODERM PATCH TD SCH (08:41)
[2019-03-15] MEDS: PROTONIX PO SCH ×2 (08:41→20:06)
[2019-03-15] MEDS: CARDIZEM PO SCH ×2 (08:41→20:06)
[2019-03-15] MEDS: DIFLUCAN PO SCH (08:41)
[2019-03-15] MEDS: LEVAQUIN PO SCH (08:41)
--- NOTE | 2019-03-15 10:07 | PROGRESS NOTE ---
DATE: 03/15/2019 SUBJECTIVE: This morning Ms. Hauser refers to be feeling a lot better. Denies any complaints. Seems to be tolerating her diet. She has been evaluated by Surgery, and they recommend to discontinue the TPN, which we do agree. OBJECTIVE: Her current vitals: Blood pressure is 161/74, pulse is 91, respirations 20, temperature is 98.5 degrees, patient is saturating 100% on 4 L. On general exam, Ms. Hauser is a 63-year-old female. She is in bed. No distress. Mucosa is pink and moist. Anicteric. Acyanotic. Neck is supple. Chest: Good air entry bilateral. Some distant sporadic wheezing. Cardiovascular: Slightly tachycardic, but regular. No murmurs, no rubs, no gallops. Gastrointestinal: Abdomen is soft. There is still some dressing over the surgical wound on the anterior abdominal wall. LANG drain is still in place. Extremities: No pedal edema. Central Nervous System: Patient is awake, alert, and oriented. LABORATORY DATA: Chemistry is reviewed. Potassium is 3.3, this will be replaced. ASSESSMENT: 1. Acute abdomen on presentation secondary to peritonitis from perforated duodenal ulcer. Patient is status post exploratory laparotomy with Rodrigue patch repair. Today is day 9 postoperatively. She is tolerating regular diet. 2. Post obstructive ileus, improved. 3. Anemia secondary to acute blood loss, improved. The patient is status post 4 PRBC transfusions during the hospital course. 4. Paroxysmal atrial fibrillation. Currently patient is in sinus. Is on p.o. Cardizem. 5. History of chronic obstructive pulmonary disease with mild bronchospasm during the hospital course, improved. 6. Tobacco dependence. The patient has been counseled. 7. Generalized weakness and deconditioning. Patient has been seen by Physical therapy. 8. Right upper extremity swelling with a peripherally inserted central catheter line in place. We will rule out DVT. A right upper extremity Doppler has been ordered, and we will follow up with the report. In general this morning, Ms. Hauser is doing a lot better. We have discontinued the TPN. We have also switched all her IV antibiotics and antimicrobial to oral from. We are pending the repeat the results on the right upper extremity Doppler and then go from there. cc: MD LIDIA Bhagat
[2019-03-15] MEDS ORDERED: FLAGYL ONE (13:57)
[2019-03-15] MEDS: FLAGYL PO SCH ×2 (13:58→21:58)
[2019-03-15] MEDS: DILAUDID IV PRN ×2 (20:06→23:29)
[2019-03-16] MEDS: DUONEB (A & A) INH SCH ×6 (03:22→23:25)
[2019-03-16] MEDS: FLAGYL PO SCH ×3 (05:39→21:04)
[2019-03-16] MEDS: HEPARIN SUBQ SCH ×3 (05:39→20:52)
[2019-03-16 05:56] LABS: AGAP 9; BUN 15 mg/dL (8-22); CHLORIDE 95 mmol/L (98-107); COSMO 263; CREATININE 0.5 mg/dL (0.5-0.9); ESTIMATED GFR > 60; GLUCOSE 94 mg/dL (70-104); MAGNESIUM 1.6 mg/dL (1.5-2.7); PHOSPHORUS 3.7 mg/dL (2.7-4.5); POTASSIUM 3.4 mmol/L (3.5-5.1); SODIUM 131 mmol/L (136-145); TCO2 27 mmol/L (25-35)
[2019-03-16] MEDS ORDERED: KLOR-CON PO ONE (06:02)
--- NOTE | 2019-03-16 07:04 | GENERAL SURGERY PROGRESS NOTE ---
DATE: 03/16/2019 SUBJECTIVE: Patient seems to be doing okay by preliminary report and discussing with the nurse. The ultrasound of her upper extremity showed that she had a DVT associated with her PICC line and the PICC line has been removed. She is off TPN anyway. OBJECTIVE: Vital Signs: Patient is currently afebrile. Her vital signs are stable. General: No acute distress. Cardiovascular: Regular rate and rhythm. Lungs: Grossly clear. Abdomen: Soft, appropriately tender. LANG drain in place with very little output. Incision is healing well. ASSESSMENT AND PLAN: A 63-year-old female status post repair of perforated duodenal ulcer with Rodrigue patch. Postoperative state. At this time, she seems to be doing well with the nursing staff to remove her loren. From a surgical point of view, I think she is great to be discharged but will defer to the Hospitalist. We can likely probably stop her antibiotics at this point. cc: Giorgio Horvath MD
[2019-03-16] MEDS: SPIRIVA INH SCH (07:45)
[2019-03-16] MEDS: DALIRESP PO SCH (08:26)
[2019-03-16] MEDS: LEVAQUIN PO SCH (08:26)
[2019-03-16] MEDS: NICODERM PATCH TD SCH (08:26)
[2019-03-16] MEDS: CARDIZEM PO SCH ×2 (08:26→20:52)
[2019-03-16] MEDS: CELEXA PO SCH (08:26)
[2019-03-16] MEDS: DIFLUCAN PO SCH (08:26)
[2019-03-16] MEDS: LOPRESSOR PO SCH ×2 (08:26→20:52)
[2019-03-16] MEDS: PROTONIX PO SCH ×2 (08:27→20:52)
--- NOTE | 2019-03-16 10:00 | PROGRESS NOTE ---
DATE: 03/16/2019 SUBJECTIVE: This morning Ms. Hauser refers to be doing a whole lot better. No new complaints. She said the loren were removed early this morning. OBJECTIVE: Vital signs: Blood pressure is 159/71, pulse of 99, respirations 16, temperature is 98.3 degrees, and patient is saturating 98%. General exam: Ms. Hauser is a 63-year-old female. She is in bed in no distress. HEENT: Mucosa is pink and moist. Anicteric. Acyanotic. Neck: Supple. Respiratory system: Air entry is bilaterally reduced. There are still some rhonchi in posterior lung live, more so in the right than the left. There is a prolonged expiratory phase of respiration. Cardiovascular: Slightly tachycardic, but regular. No murmurs, no rubs, no gallops. GI: Abdomen is soft. Bowel sounds present. There is sterile strips over the surgical wound. Looks clean. LANG drain is still in place. Extremities: No pedal edema. 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 LABORATORY DATA: Sodium is 131, potassium is 3.4, chloride 95. Rest of chemistry is unremarkable. IMAGING STUDIES: No new imaging studies. CURRENT MEDICATIONS: Have all been reviewed; no changes. ASSESSMENT: 1. Acute abdomen on presentation secondary to peritonitis from perforated duodenal ulcer. The patient is status post exploratory laparotomy with Rodrigue patch repair. Today is day 10 postoperatively. She is tolerating regular diet. Total parenteral nutrition has been discontinued. There is a pending plan to discharge her to rehabilitation. 2. Postobstructive ileus, improved. 3. Anemia secondary to acute blood loss, improved. The patient is status post 4 packed red blood cell transfusions during the hospital course. 4. Paroxysmal atrial fibrillation, currently rate controlled. Patient is in sinus. She is on oral Cardizem. 5. History of chronic obstructive pulmonary disease with mild bronchospasm, improved. 6. Tobacco dependence. Patient has been counseled. 7. Right upper extremity superficial deep vein thrombosis. PICC line has been removed. No need for anticoagulation. 8. Generalized weakness and deconditioning. Physical therapy is on board. PLAN: So, in general, I think Ms. Hauser is a lot better. She seems to be getting stronger. From Surgery documentation, it appears they are okay whenever there is a bed available for her to be discharged. We are pending rehab arrangements for discharge. cc: Allan Evans MD
[2019-03-16] MEDS ORDERED: FLAGYL ONE (13:40)
[2019-03-16] MEDS: DILAUDID IV PRN ×3 (13:56→20:53)
[2019-03-17] MEDS: DUONEB (A & A) INH SCH ×3 (03:44→11:15)
[2019-03-17] MEDS: DILAUDID IV PRN ×3 (04:14→12:34)
[2019-03-17] MEDS: HEPARIN SUBQ SCH ×2 (05:03→12:41)
[2019-03-17] MEDS: FLAGYL PO SCH (05:06)
[2019-03-17] MEDS ORDERED: FLAGYL ONE (05:07)
[2019-03-17 06:16] LABS: AGAP 9; BUN 20 mg/dL (8-22); CHLORIDE 98 mmol/L (98-107); COSMO 266; CREATININE 0.5 mg/dL (0.5-0.9); ESTIMATED GFR > 60; GLUCOSE 110 mg/dL (70-104); POTASSIUM 3.9 mmol/L (3.5-5.1); SODIUM 131 mmol/L (136-145); TCO2 24 mmol/L (25-35)
[2019-03-17 06:17] LABS: MAGNESIUM 1.4 mg/dL (1.5-2.7); PHOSPHORUS 3.6 mg/dL (2.7-4.5)
--- NOTE | 2019-03-17 06:50 | GENERAL SURGERY PROGRESS NOTE ---
DATE: 03/17/2019 SUBJECTIVE: Patient seems to be doing well. They are looking for rehab options at this point. She was up and mobilizing more today and yesterday. Her LANG output has increased but still sounds serosanguineous. Clinically, she is doing well. OBJECTIVE: Vital Signs: Patient is currently afebrile, her vital signs are stable. General: No acute distress. Cardiovascular: Regular rate and rhythm. Lungs: Some coarse sounds noted. Abdomen: Soft, appropriately tender. LANG drain in place with no output at the moment. ASSESSMENT AND PLAN: A 63-year-old female status post open repair of duodenal perforation with Rodrigue patch. Postoperative state. At this time, I think the patient is likely safe to be discharged to a rehab facility once arrangements are made. Keep LANG drain in place. cc: Giorgio Horvath MD
[2019-03-17] MEDS: SPIRIVA INH SCH (07:59)
[2019-03-17] MEDS: LOPRESSOR PO SCH (08:06)
[2019-03-17] MEDS: CARDIZEM PO SCH (08:06)
[2019-03-17] MEDS: NICODERM PATCH TD SCH (08:06)
[2019-03-17] MEDS: DALIRESP PO SCH (08:06)
[2019-03-17] MEDS: PROTONIX PO SCH (08:06)
[2019-03-17] MEDS: CELEXA PO SCH (08:06)
[2019-03-17] MEDS: LEVAQUIN PO SCH (08:06)
[2019-03-17] MEDS: DIFLUCAN PO SCH (08:06)
[2019-03-17] MEDS ORDERED: MAGNESIUM SULFATE 4 GM/S.W.I. 4 GM/100 ML IVPB IV ONE (08:20)
[2019-03-17 12:05] VITALS: BP 130/57
--- NOTE | 2019-03-17 12:32 | DISCHARGE SUMMARY ---
ADMISSION DATE: 03/05/2019 DISCHARGE DATE: 03/17/2019 DISPOSITION: [facility] [place] CONSULTATION DURING THIS ADMISSION: 1. Surgery was consulted. Patient was seen by Dr. Horvath. 2. Cardiology was consulted. Patient was seen by Dr. Amauri Méndez. INVASIVE PROCEDURES DONE DURING THIS ADMISSION: Exploratory laparotomy with open Rodrigue patch repair for perforated duodenal ulcer was done by Dr. Horvath on 03/05/2019 IMAGING STUDIES OF SIGNIFICANCE: 1. CT scan of the abdomen and pelvis showed free intraperitoneal air. 2. Chest x-ray shows COPD changes and suggestion of very mild interstitial edema. 3. Echocardiogram showed ejection fraction of 65%. No regional wall abnormalities and no significant valvulopathy. 4. A CT scan of the head with suggestion of mild white matter microangiopathy. 5. An upper GI series showed normal flow barium through the stomach into the duodenum. ADMISSION DIAGNOSES: 1. Bowel perforation. 2. Chronic obstructive pulmonary disease. 3. Hypertension. 4. Chronic low back pain. DIAGNOSES AT THE TIME OF DISCHARGE: 1. Acute abdomen on presentation secondary to peritonitis from perforated duodenal ulcer. Patient is status post exploratory laparotomy with open Rodrigue patch repair. 2. Postoperative ileus improved. 3. Anemia secondary to acute blood loss patient was status post 4 PRBC transfusion during the hospital course. Hemoglobin and hematocrit are fairly stable. 4. Paroxysmal atrial fibrillation, currently rate controlled. The patient is on oral Cardizem. No anticoagulation because of severe postsurgical bleeding needing blood transfusion. 5. History of chronic obstructive pulmonary disease with mild bronchospasm during the hospital course, improved. 6. Tobacco dependence. The patient has been counseled. 7. Right upper extremity superficial deep venous thrombosis. No anticoagulation needed. 8. Generalized weakness and deconditioning. Physical therapy is on board. 9. Chronic pain syndrome noted. DISCHARGE MEDICATIONS: 1. Spiriva. 2. Daliresp 500 mcg p.o. daily. 3. [place]. 4. Methocarbamol 750 p.o. 3 times per day. 5. Pregabalin 150 p.o. 3 times per day. 6. Cardizem 60 mg b.i.d. 7. Celexa 40 mg p.o. daily. 8. Metoprolol 25 mg b.i.d. 9. Pantoprazole 40 mg p.o. daily. PRESENTING COMPLAINT: Abdominal pain. HISTORY OF PRESENTING COMPLAINT/HOSPITAL COURSE: Ms. Hauser 63-year-old female with multiple comorbidities including COPD, hypertension, ongoing tobacco use before hospitalization who came in because of abdominal pain. She was evaluated and investigated and was found to have a perforated viscus. Patient was sent to OR same day, was found to have a perforated duodenal ulcer which was repaired with Rodrigue patch. Ms. Hauser was admitted initially to the ICU after surgery. She continued to be gradually improving. At some point, there was concern of her bowel function, so an upper GI series was done which was normal. Ms. Hauser was started on some clears and her diet was eventually advanced to regular diet which she has been tolerating well. This morning she feels a lot better. She does have some COPD in mild exacerbation, which has been under control. She has been treated with more than 10 days of antimicrobial therapy, so will discontinue this today. She will continue with pulmonary toilet in the physical therapy area. She has also been started on rate control therapy for her postsurgical atrial fibrillation. She is not on any anticoagulation for now because of bleeding after surgery, needing 4 PRBC transfusion. Patient will be re-evaluated by Cardiology on outpatient base and decide when that will be reasonable to start. PHYSICAL EXAMINATION: Vital Signs: Her current vitals this morning show blood pressure is 150/72, pulse 100, respiration is 18, temperature is 98.5 degrees. The patient is saturating 99%. Lungs: Physical exam is unremarkable except for some faint rhonchi in bilateral lung live. Otherwise, physical exam is unremarkable. Abdomen: Patient still has a LANG drain in place, which Surgery plans to leave it there for some time. DISCHARGE INSTRUCTIONS: All the discharge instructions have been discussed with her and she voiced understanding. TIME SPENT: Time spent for discharge is 35 minutes. cc: MD Giorgio Bhagat MD Peter Johnson, MD Marlin D. Gill, MD MTDD
--- NOTE | 2019-03-17 21:24 | Extremity Venous Study ---
PROCEDURE NAME: Venous U/S Right Arm - 03/15/2019 CHECK WRITER: Garry. REQUESTING PHYSICIAN: Nathan. INDICATIONS: Edema and PICC line, upper arm. FINDINGS: The deep and superficial veins of the right upper extremity and neck were visualized. There is a PICC line noted coursing through the basilic vein to the axillary vein. At the level of the basilic vein, there is visualized thrombus, consistent with a pericatheter thrombus, but otherwise no deep or superficial thrombus noted. SUMMARY: Acute superficial venous thrombus noted around the right upper extremity PICC line. cc: MD Allan Dudley MD
[2019-03-18] MEDS ORDERED: PROTONIX PO SCH (09:00)
== END 2019-03-17 14:01 | DRG 329 ==
LOC: SUPCPDRO → SUATTDRO → ED 02:09 → ICU 08:29 → SUATTDRO 08:29 → 4N 03-07 12:20 → ICU 03-07 22:40 → 3S 03-09 16:45
PROVIDERS: ATTEND Internal Medicine
CPT/HCPCS: 36430; 36569; 51701; 70450; 71010; 71045; 74177; 74240; 80048; 80053; 80076; 80101; 80301; 80307; 80324; 80345; 80346; 80353; 80358; 80361; 80365; 81001; 82040; 82150; 82270; 82465; 82550; 82553; 82805; 82948; 83605; 83690; 83735; 83992; 84100; 84134; 84439; 84443; 84450; 84478; 84484; 85014; 85018; 85025; 85610; 85730; 86850; 86900; 86901; 86920; 93005; 93010; 93306; 93971; 94640; 94760; 94761; 94799; 96365; 96368; 96375; 97110; 97116; 97163; 97166; 97530; 97535; 99285; A9270; C9113; G0431; G0434; G0479; G0480; J0131; J0330; J1100; J1170; J1200; J1450; J1644; J1885; J1956; J2060; J2270; J2370; J2405; J3010; J3475; J3480; J7030; J7050; J7060; J7120; P9016; P9612; Q9966; Q9967; S0028; S0030; S0164; XXXXX